=== PATIENT | male | born 1960 | race Caucasian/White ===

== ENCOUNTER 2021-04-03 17:28 | Emergency (ER) | payer OTHER ==
[2021-04-03 18:31] LABS: #Basophils 0.1 10x3/uL (0.0-0.2); #Eosinphils 0.3 10x3/uL (0.0-0.5); #Monocytes 0.4 10x3/uL (0.0-1.1); #Neutrophils 3.5 10x3/uL (1.5-8.4); %Basophils 1.4 % (0.0-2.0); %Eosinophils 4.8 % (0.0-6.0); %Lymphocytes 25.3 % (18.0-47.0); %Neutrophils 60.6 % (40.0-75.0); Hemoglobin 8.8 g/dL (13.5-17.5); Mean Corpuscular HGB CONC 32.5 g/dL (32.0-36.0); Mean Corpuscular Hemoglobin 26.1 pg (27.0-33.0); Mean Corpuscular Volume 80.4 fl (81.2-95.1); Mean Platelet Volume 8.9 fl (7.4-10.4); Platelet Count 267 10x3/uL (150-450); RBC Distribution Width 13.1 % (11.5-14.5); Red Blood Cell (RBC) Count 3.37 10x6/uL (4.32-5.72); White Blood Cell (WBC) Count 5.8 10x3/uL (3.5-10.5)
[2021-04-03 18:52] LABS: ALT (SGPT) 17 U/L (8-55); AST (SGOT) 12 U/L (5-34); Albumin 3.4 g/dL (3.5-5.0); Alkaline Phosphatase 104 U/L (40-110); Anion Gap 12 mmol/L (10-20); BUN (Urea Nitrogen) 15 mg/dL (8.4-25.7); Bilirubin, Total 0.4 mg/dL (0.2-1.2); Calc. Creatinine Clearance 0 mL/min (70-130); Calcium 8.4 mg/dL (7.8-10.44); Carbon Dioxide 19 mmol/L (22-29); Chloride 109 mmol/L (98-107); Globulin 3.6 g/dL (2.4-3.5); Glucose 183 mg/dL (70-105); Potassium 4.3 mmol/L (3.5-5.1); Sodium 136 mmol/L (136-145)
== END 2021-04-03 19:39 | disposition home or self-care (01) ==
LOC: EEVIPCON 17:28 → CSHERS 17:28
DX: D64.9 Anemia, unspecified (principal); E11.9 Type 2 diabetes mellitus without complications; I11.0 Hypertensive heart disease with heart failure; I50.9 Heart failure, unspecified; E78.5 Hyperlipidemia, unspecified
CPT/HCPCS: 36415; 80053; 85025; 99284

== ENCOUNTER 2021-07-11 11:09 | Emergency (ER) | payer OTHER ==
[2021-07-11] MEDS ORDERED: Nitroglycerin 50 MG/250 ML BOT 250 ML ONE (11:27)
[2021-07-11 11:37] LABS: Actual Bicarbonate (HCO3a) 22.7 mEq/L (22-28); Base Excess (BEa) -0.4 mEq/L (-2.0 to +3.0); CO2 Tension 30.8 mmHg (35.0-45.0); Calcium, Ionized (arterial) 1.15 mmol/L (1.12-1.30); Carboxyhemoglobin (COHb) 0.9 gm% (0.0-3.0); Hemoglobin (Hb) 8.2 g/dL (14.0-18.0); O2 Tension (PaO2), arterial 351.7 mmHg (> 80.0); Potassium - ABG Lab 4.5 mmol/L (3.70-5.30); Puncture Site RBA; pH, Arterial 7.49 (7.35-7.45)
[2021-07-11] MEDS ORDERED: Furosemide 40 MG/4 ML VIAL ONE (11:37)
[2021-07-11 11:39] LABS: #Basophils 0.1 10x3/uL (0.0-0.2); #Eosinphils 0.2 10x3/uL (0.0-0.5); #Monocytes 0.4 10x3/uL (0.0-1.1); #Neutrophils 5.8 10x3/uL (1.5-8.4); %Basophils 1.1 % (0.0-2.0); %Eosinophils 3.2 % (0.0-6.0); %Lymphocytes 13.7 % (18.0-47.0); %Monocytes 5.4 % (0.0-10.0); %Neutrophils 76.2 % (40.0-75.0); Hemoglobin 7.3 g/dL (13.5-17.5); Mean Corpuscular HGB CONC 29.3 g/dL (32.0-36.0); Mean Corpuscular Hemoglobin 22.2 pg (27.0-33.0); Mean Corpuscular Volume 75.7 fl (81.2-95.1); Mean Platelet Volume 9.3 fl (7.4-10.4); Platelet Count 421 10x3/uL (150-450); RBC Distribution Width 14.5 % (11.5-14.5); Red Blood Cell (RBC) Count 3.29 10x6/uL (4.32-5.72); White Blood Cell (WBC) Count 7.6 10x3/uL (3.5-10.5)
[2021-07-11 11:58] LABS: ALT (SGPT) 25 U/L (8-55); AST (SGOT) 30 U/L (5-34); Alkaline Phosphatase 149 U/L (40-110); Anion Gap 12 mmol/L (10-20); BUN (Urea Nitrogen) 22 mg/dL (8.4-25.7); Bilirubin, Total 0.5 mg/dL (0.2-1.2); Calc. Creatinine Clearance 0 mL/min (70-130); Calcium 8.4 mg/dL (7.8-10.44); Carbon Dioxide 24 mmol/L (23-31); Chloride 107 mmol/L (98-107); Globulin 3.7 g/dL (2.4-3.5); Glucose 85 mg/dL (80-115); Lipase 25 U/L (8-78); Potassium 4.4 mmol/L (3.5-5.1); Protein, Total 6.7 g/dL (5.8-8.1); Sodium 139 mmol/L (136-145)
[2021-07-11 12:08] LABS: Hypochromia SLIGHT = 6-15 cells (100X) (0-5/hpf); Ovalocytes SLIGHT = 2-5 cells (100X) (0-1/hpf); Platelet Morphology Comment Appears Adequate
[2021-07-11 12:31] LABS: SARS-CoV-2 NAA Rapid Test Not Detected (NotDetected)
[2021-07-11 14:32] LABS: Bilirubin Neg (Negative); Blood, Urine Negative (Negative); Glucose, Urine (Dipstick) Normal (Negative); Ketone, Urine Negative (Negative); Leukocyte Negative (Negative); Nitrite Negative (Negative); Protein, Urine (Dipstick) 100 mg/dl (Neg-Trace); Urobilinogen Normal mg/dL (Less than 2)
[2021-07-11 14:42] LABS: Clarity Clear (Clear)
[2021-07-11 14:47] LABS: Bacteria/HPF None Seen HPF (None Seen); RBC/HPF 0-3 HPF (0-3); Squamous Epithelial None Seen HPF (0-3); WBC/HPF 0-3 HPF (0-3)
[2021-07-11] MEDS ORDERED: Nitroglycerin 50 MG/250 ML BOT 250 ML IVPB SCH (16:15)
== END 2021-07-11 16:40 | disposition short-term general hospital (02) ==
LOC: CSHERS 11:09 → EEVIPCON 11:09 → CSHERS 16:40
DX: I11.0 Hypertensive heart disease with heart failure (principal); I50.9 Heart failure, unspecified; E78.5 Hyperlipidemia, unspecified; E11.9 Type 2 diabetes mellitus without complications; Z79.899 Other long term (current) drug therapy; Z79.82 Long term (current) use of aspirin; Z79.84 Long term (current) use of oral hypoglycemic drugs; Z20.822 Contact with and (suspected) exposure to COVID-19
CPT/HCPCS: 36600; 51702; 71045; 80053; 81003; 81015; 82805; 83605; 83690; 83880; 84484; 85025; 87040; 87086; 93005; 94660; 96374; 96375; J1940; U0002

== ENCOUNTER 2021-11-01 20:21 | Inpatient (IN) | payer OTHER ==
[2021-11-01 20:38] LABS: #Basophils 0.1 10x3/uL (0.0-0.2); #Eosinphils 0.1 10x3/uL (0.0-0.5); #Monocytes 0.4 10x3/uL (0.0-1.1); #Neutrophils 4.6 10x3/uL (1.5-8.4); %Basophils 0.8 % (0.0-2.0); %Eosinophils 2.2 % (0.0-6.0); %Lymphocytes 18.1 % (18.0-47.0); %Monocytes 5.8 % (0.0-10.0); %Neutrophils 72.5 % (40.0-75.0); Hemoglobin 8.3 g/dL (13.5-17.5); Mean Corpuscular HGB CONC 31.2 g/dL (32.0-36.0); Mean Corpuscular Hemoglobin 25.5 pg (27.0-33.0); Mean Corpuscular Volume 81.6 fl (81.2-95.1); Mean Platelet Volume 9.4 fl (7.4-10.4); Platelet Count 202 10x3/uL (150-450); RBC Distribution Width 16.3 % (11.5-14.5); Red Blood Cell (RBC) Count 3.26 10x6/uL (4.32-5.72); White Blood Cell (WBC) Count 6.4 10x3/uL (3.5-10.5)
[2021-11-01] MEDS ORDERED: Furosemide 40 MG/4 ML VIAL ONE (20:43)
[2021-11-01 20:52] LABS: ALV-art Gradient 120.275 mmHg (0-20); Base Excess (BEa) -2.5 mEq/L (-2.0 to +3.0); CO2 Tension 36.5 mmHg (35.0-45.0); Calcium, Ionized (arterial) 1.14 mmol/L (1.12-1.30); Carboxyhemoglobin (COHb) 0.6 gm% (0.0-3.0); O2 Tension (PaO2), arterial 119.3 mmHg (> 80.0); Potassium - ABG Lab 4.6 mmol/L (3.70-5.30); Puncture Site RRA
[2021-11-01 20:54] LABS: ALT (SGPT) 20 U/L (8-55); AST (SGOT) 19 U/L (5-34); Alkaline Phosphatase 180 U/L (40-110); Anion Gap 12 mmol/L (10-20); BUN (Urea Nitrogen) 27 mg/dL (8.4-25.7); Bilirubin, Total 0.8 mg/dL (0.2-1.2); Calc. Creatinine Clearance 0 mL/min (70-130); Calcium 8.1 mg/dL (7.8-10.44); Carbon Dioxide 24 mmol/L (23-31); Chloride 107 mmol/L (98-107); Globulin 3.8 g/dL (2.4-3.5); Glucose 159 mg/dL (80-115); Potassium 4.7 mmol/L (3.5-5.1); Protein, Total 6.8 g/dL (5.8-8.1); Sodium 138 mmol/L (136-145)
[2021-11-01] MEDS ORDERED: hydrALAZINE 20 MG/ML VIAL ONE (21:31)
[2021-11-01 22:05] LABS: SARS-CoV-2 NAA Rapid Test Not Detected (NotDetected)
[2021-11-01] MEDS ORDERED: VANCOMYCIN 2 GRAM/400 ML BAG IVPB SCH (23:45)
[2021-11-01] MEDS ORDERED: Acetaminophen 325 MG TAB PO PRN (23:55)
[2021-11-02] MEDS ORDERED: Dextrose 5% in Water 1,000 ML IV PRN (00:07)
[2021-11-02] MEDS: Dextrose 50% Abboject 50 ML SYRINGE SLOW IVP PRN ×3 (00:50→11:40)
[2021-11-02 00:57] LABS: INR-International Normal Ratio 1.1; PTT 25.7 sec (22.0-33.0); Prothrombin Time 11.5 sec (9.5-12.1)
[2021-11-02 00:59] LABS: Magnesium 1.7 mg/dL (1.6-2.6)
[2021-11-02] MEDS ORDERED: VANCOMYCIN 2 GRAM/400 ML BAG 2 GM in Premix Bag 1 BAG IVPB SCH (01:00)
[2021-11-02] MEDS: Enalaprilat Dihydrate 1.25 MG/ML VIAL SLOW IVP SCH ×4 (01:07→17:37)
[2021-11-02] MEDS: Nitroglycerin 2% Ointment 1 INCH/1 GM Packet TOP SCH ×3 (01:08→17:13)
[2021-11-02 03:52] LABS: Anion Gap 14 mmol/L (10-20); BUN (Urea Nitrogen) 27 mg/dL (8.4-25.7); Calc. Creatinine Clearance 83 mL/min (70-130); Carbon Dioxide 21 mmol/L (23-31); Chloride 109 mmol/L (98-107); Glucose 64 mg/dL (80-115); Potassium 4.1 mmol/L (3.5-5.1); Sodium 140 mmol/L (136-145)
[2021-11-02 03:57] LABS: #Basophils 0.1 10x3/uL (0.0-0.2); #Eosinphils 0.1 10x3/uL (0.0-0.5); #Monocytes 0.5 10x3/uL (0.0-1.1); #Neutrophils 4.9 10x3/uL (1.5-8.4); %Basophils 0.9 % (0.0-2.0); %Eosinophils 1.9 % (0.0-6.0); %Lymphocytes 19.5 % (18.0-47.0); %Monocytes 6.6 % (0.0-10.0); %Neutrophils 70.7 % (40.0-75.0); Hemoglobin 8.1 g/dL (13.5-17.5); Mean Corpuscular HGB CONC 31.9 g/dL (32.0-36.0); Mean Corpuscular Volume 81.4 fl (81.2-95.1); Mean Platelet Volume 9.5 fl (7.4-10.4); Platelet Count 201 10x3/uL (150-450); RBC Distribution Width 16.6 % (11.5-14.5); Red Blood Cell (RBC) Count 3.12 10x6/uL (4.32-5.72); Troponin I Less than 0.010 ng/mL (< 0.028)
[2021-11-02] MEDS: Furosemide 40 MG/4 ML VIAL SLOW IVP SCH ×2 (05:33→13:06)
[2021-11-02] MEDS ORDERED: Furosemide 40 MG/4 ML VIAL SLOW IVP SCH (06:00)
[2021-11-02] MEDS: Enoxaparin Sodium 40 MG/0.4 ML SYRINGE SC SCH (08:50)
[2021-11-02] MEDS: Pantoprazole 40 MG VIAL IVP SCH (08:51)
[2021-11-02] MEDS: Ascorbic Acid 500 mg Chewable Tablet PO SCH ×2 (08:51→20:56)
[2021-11-02] MEDS: Multivit, Therapeutic 1 TAB PO SCH (08:51)
[2021-11-02] MEDS: Aspirin 81 mg Enteric Coated Tablet PO SCH (08:51)
[2021-11-02] MEDS: Zinc Sulfate 220 MG CAP PO SCH ×2 (08:53→20:56)
[2021-11-02] MEDS: Metoprolol Tartrate 50 MG TAB PO SCH ×2 (08:53→20:56)
[2021-11-02] MEDS: metFORMIN 500 MG TAB PO SCH ×2 (10:22→17:39)
[2021-11-02 12:12] LABS: ALV-art Gradient 85.625 mmHg (0-20); Actual Bicarbonate (HCO3a) 24.3 mEq/L (22-28); Base Excess (BEa) -0.7 mEq/L (-2.0 to +3.0); CO2 Tension 41.9 mmHg (35.0-45.0); Carboxyhemoglobin (COHb) 0.9 gm% (0.0-3.0); Hemoglobin (Hb) 8.8 g/dL (14.0-18.0); O2 Tension (PaO2), arterial 75.9 mmHg (> 80.0); Puncture Site RBA; pH, Arterial 7.38 (7.35-7.45)
[2021-11-02] MEDS: Dextrose 10% in Water 1,000 ML IV SCH (16:00)
[2021-11-02] MEDS: Terazosin HCl 5 MG CAP PO SCH (20:56)
[2021-11-02] MEDS: Atorvastatin Calcium 40 MG TAB PO SCH (20:56)
[2021-11-02] MEDS ORDERED: VANCOMYCIN 1.75 GM/350 ML BAG IVPB SCH (23:45)
[2021-11-03] MEDS: Nitroglycerin 2% Ointment 1 INCH/1 GM Packet TOP SCH ×3 (00:12→16:37)
[2021-11-03] MEDS: VANCOMYCIN 1.75 GM/350 ML BAG 1.75 GM in Premix Bag 1 BAG IVPB SCH (00:12)
[2021-11-03] MEDS: Furosemide 40 MG/4 ML VIAL SLOW IVP SCH ×2 (05:23→14:20)
[2021-11-03 05:24] LABS: Anion Gap 13 mmol/L (10-20); BUN (Urea Nitrogen) 27 mg/dL (8.4-25.7); Calc. Creatinine Clearance 78 mL/min (70-130); Calcium 8.1 mg/dL (7.8-10.44); Carbon Dioxide 20 mmol/L (23-31); Chloride 108 mmol/L (98-107); Glucose 109 mg/dL (80-115); Sodium 137 mmol/L (136-145)
[2021-11-03 05:32] LABS: Troponin I Less than 0.010 ng/mL (< 0.028)
[2021-11-03] MEDS: Multivit, Therapeutic 1 TAB PO SCH (07:49)
[2021-11-03] MEDS: Ascorbic Acid 500 mg Chewable Tablet PO SCH ×2 (07:49→21:38)
[2021-11-03] MEDS: Metoprolol Tartrate 50 MG TAB PO SCH ×2 (07:50→21:38)
[2021-11-03] MEDS: Zinc Sulfate 220 MG CAP PO SCH ×2 (07:50→21:38)
[2021-11-03] MEDS: Aspirin 81 mg Enteric Coated Tablet PO SCH (07:50)
[2021-11-03] MEDS: Enoxaparin Sodium 40 MG/0.4 ML SYRINGE SC SCH (08:00)
[2021-11-03] MEDS: Pantoprazole 40 MG VIAL IVP SCH (08:00)
[2021-11-03 13:38] LABS: Legionella Urinary Ag Negative (Negative); Strep pneumo Urine Ag NEGATIVE (NEGATIVE)
[2021-11-03] MEDS ORDERED: Furosemide 40 MG/4 ML VIAL SLOW IVP SCH (21:15)
[2021-11-03] MEDS: Dextrose 10% in Water 1,000 ML IV SCH (21:34)
[2021-11-03] MEDS: Metoprolol Tartrate 5 MG/5 ML VIAL IVP SCH (21:34)
[2021-11-03] MEDS: Terazosin HCl 5 MG CAP PO SCH (21:37)
[2021-11-03] MEDS: Atorvastatin Calcium 40 MG TAB PO SCH (21:38)
[2021-11-03] MEDS: Enalaprilat Dihydrate 1.25 MG/ML VIAL SLOW IVP SCH (22:06)
[2021-11-04] MEDS: VANCOMYCIN 1.75 GM/350 ML BAG 1.75 GM in Premix Bag 1 BAG IVPB SCH (00:59)
[2021-11-04] MEDS: Nitroglycerin 2% Ointment 1 INCH/1 GM Packet TOP SCH ×3 (01:09→16:08)
[2021-11-04] MEDS: Metoprolol Tartrate 5 MG/5 ML VIAL IVP SCH ×2 (01:10→08:21)
[2021-11-04 03:37] LABS: #Basophils 0.1 10x3/uL (0.0-0.2); #Eosinphils 0.2 10x3/uL (0.0-0.5); #Monocytes 0.5 10x3/uL (0.0-1.1); #Neutrophils 5.2 10x3/uL (1.5-8.4); %Basophils 0.8 % (0.0-2.0); %Eosinophils 2.6 % (0.0-6.0); %Lymphocytes 19.1 % (18.0-47.0); %Monocytes 7.3 % (0.0-10.0); %Neutrophils 69.9 % (40.0-75.0); Hemoglobin 7.9 g/dL (13.5-17.5); Mean Corpuscular HGB CONC 31.5 g/dL (32.0-36.0); Mean Corpuscular Hemoglobin 26.1 pg (27.0-33.0); Mean Corpuscular Volume 82.8 fl (81.2-95.1); Mean Platelet Volume 9.8 fl (7.4-10.4); Platelet Count 202 10x3/uL (150-450); RBC Distribution Width 16.1 % (11.5-14.5); Red Blood Cell (RBC) Count 3.03 10x6/uL (4.32-5.72); White Blood Cell (WBC) Count 7.4 10x3/uL (3.5-10.5)
[2021-11-04 04:01] LABS: Anion Gap 14 mmol/L (10-20); BUN (Urea Nitrogen) 30 mg/dL (8.4-25.7); Calc. Creatinine Clearance 74 mL/min (70-130); Calcium 8.4 mg/dL (7.8-10.44); Carbon Dioxide 24 mmol/L (23-31); Chloride 104 mmol/L (98-107); Glucose 133 mg/dL (80-115); Magnesium 1.6 mg/dL (1.6-2.6); Potassium 3.8 mmol/L (3.5-5.1); Sodium 138 mmol/L (136-145)
[2021-11-04] MEDS: Enalaprilat Dihydrate 1.25 MG/ML VIAL SLOW IVP SCH ×2 (05:40→11:00)
[2021-11-04] MEDS: Furosemide 40 MG/4 ML VIAL SLOW IVP SCH ×2 (05:40→14:31)
[2021-11-04] MEDS: Enoxaparin Sodium 40 MG/0.4 ML SYRINGE SC SCH (08:19)
[2021-11-04] MEDS: Metoprolol Tartrate 50 MG TAB PO SCH (08:21)
[2021-11-04] MEDS: Ascorbic Acid 500 mg Chewable Tablet PO SCH ×2 (08:22→20:16)
[2021-11-04] MEDS: Aspirin 81 mg Enteric Coated Tablet PO SCH (08:22)
[2021-11-04] MEDS: Multivit, Therapeutic 1 TAB PO SCH (08:22)
[2021-11-04] MEDS: Zinc Sulfate 220 MG CAP PO SCH ×2 (08:22→20:17)
[2021-11-04] MEDS: Pantoprazole 40 MG VIAL IVP SCH (08:22)
[2021-11-04] MEDS: hydrALAZINE 25 MG TAB PO SCH ×2 (14:29→20:16)
[2021-11-04] MEDS: Carvedilol 12.5 MG TAB PO SCH (16:08)
[2021-11-04] MEDS: Dextrose 10% in Water 1,000 ML IV SCH (16:11)
[2021-11-04] MEDS: Atorvastatin Calcium 40 MG TAB PO SCH (20:16)
[2021-11-04] MEDS: Terazosin HCl 5 MG CAP PO SCH (20:17)
[2021-11-05 00:47] LABS: Vancomycin, Trough 25.5 ug/mL
[2021-11-05 03:17] LABS: Anion Gap 14 mmol/L (10-20); BUN (Urea Nitrogen) 31 mg/dL (8.4-25.7); Calc. Creatinine Clearance 64 mL/min (70-130); Calcium 8.4 mg/dL (7.8-10.44); Carbon Dioxide 27 mmol/L (23-31); Chloride 103 mmol/L (98-107); Glucose 117 mg/dL (80-115); Magnesium 1.6 mg/dL (1.6-2.6); Potassium 3.6 mmol/L (3.5-5.1); Sodium 140 mmol/L (136-145)
[2021-11-05] MEDS: Furosemide 40 MG/4 ML VIAL SLOW IVP SCH ×2 (05:37→14:22)
[2021-11-05] MEDS: Multivit, Therapeutic 1 TAB PO SCH (08:03)
[2021-11-05] MEDS: Ascorbic Acid 500 mg Chewable Tablet PO SCH ×2 (08:03→20:13)
[2021-11-05] MEDS: Carvedilol 12.5 MG TAB PO SCH ×2 (08:03→16:08)
[2021-11-05] MEDS: Zinc Sulfate 220 MG CAP PO SCH ×2 (08:03→20:14)
[2021-11-05] MEDS: Aspirin 81 mg Enteric Coated Tablet PO SCH (08:03)
[2021-11-05] MEDS: Nitroglycerin 2% Ointment 1 INCH/1 GM Packet TOP SCH ×3 (08:03→16:08)
[2021-11-05] MEDS: Pantoprazole 40 MG VIAL IVP SCH (08:03)
[2021-11-05] MEDS: Enoxaparin Sodium 40 MG/0.4 ML SYRINGE SC SCH (08:03)
[2021-11-05] MEDS: Dextrose 10% in Water 1,000 ML IV SCH (08:04)
[2021-11-05] MEDS: hydrALAZINE 25 MG TAB PO SCH ×3 (08:06→20:13)
[2021-11-05] MEDS: Nystatin Powder 15 GM BOT TOP PRN (17:44)
[2021-11-05] MEDS: Atorvastatin Calcium 40 MG TAB PO SCH (20:13)
[2021-11-05] MEDS: Terazosin HCl 5 MG CAP PO SCH (20:13)
[2021-11-06] MEDS ORDERED: VANCOMYCIN 1.25 GM/250 ML BAG 1.25 GM in Premix Bag 1 BAG IVPB SCH (01:00)
[2021-11-06] MEDS: Dextrose 10% in Water 1,000 ML IV SCH (02:34)
[2021-11-06] MEDS: Nitroglycerin 2% Ointment 1 INCH/1 GM Packet TOP SCH ×2 (02:36→08:08)
[2021-11-06 04:38] LABS: Anion Gap 13 mmol/L (10-20); BUN (Urea Nitrogen) 35 mg/dL (8.4-25.7); Calc. Creatinine Clearance 58 mL/min (70-130); Calcium 8.6 mg/dL (7.8-10.44); Carbon Dioxide 31 mmol/L (23-31); Chloride 101 mmol/L (98-107); Glucose 149 mg/dL (80-115); Potassium 3.4 mmol/L (3.5-5.1); Sodium 142 mmol/L (136-145)
[2021-11-06] MEDS: Furosemide 40 MG/4 ML VIAL SLOW IVP SCH (05:48)
[2021-11-06 06:06] VITALS: BMI 25.9
[2021-11-06] MEDS: Enoxaparin Sodium 40 MG/0.4 ML SYRINGE SC SCH (08:08)
[2021-11-06] MEDS: Pantoprazole 40 MG VIAL IVP SCH (08:08)
[2021-11-06] MEDS: Multivit, Therapeutic 1 TAB PO SCH (08:09)
[2021-11-06] MEDS: Carvedilol 12.5 MG TAB PO SCH ×2 (08:09→17:14)
[2021-11-06] MEDS: hydrALAZINE 25 MG TAB PO SCH ×3 (08:10→20:19)
[2021-11-06] MEDS: Aspirin 81 mg Enteric Coated Tablet PO SCH (08:10)
[2021-11-06] MEDS: Ascorbic Acid 500 mg Chewable Tablet PO SCH ×2 (08:11→20:19)
[2021-11-06] MEDS: Zinc Sulfate 220 MG CAP PO SCH ×2 (08:11→20:19)
[2021-11-06] MEDS: HumaLOG 300 UNITS/3 ML VIAL SC PRN ×3 (11:20→20:19)
[2021-11-06] MEDS ORDERED: Magnesium Sulfate 3 GM in Sodium Chloride 0.9% 100 ML IVPB SCH (15:30)
[2021-11-06] MEDS ORDERED: Potassium Chloride 20 MEQ TAB PO SCH (15:30)
[2021-11-06] MEDS: Furosemide 20 MG TAB PO SCH (15:33)
[2021-11-06] MEDS ORDERED: Magnesium 2 GM/50 ML(in water) 2 GM in Premix Bag 1 BAG IVPB SCH (15:45)
[2021-11-06] MEDS: guaiFENesin/Codeine Phosphate 100 mg/10 mg 5 ml UD Cup PO PRN (20:18)
[2021-11-06] MEDS: Nystatin Powder 15 GM BOT TOP PRN (20:18)
[2021-11-06] MEDS: Terazosin HCl 5 MG CAP PO SCH (20:19)
[2021-11-06] MEDS: Atorvastatin Calcium 40 MG TAB PO SCH (20:19)
[2021-11-07 04:50] LABS: Anion Gap 13 mmol/L (10-20); BUN (Urea Nitrogen) 39 mg/dL (8.4-25.7); Calc. Creatinine Clearance 57 mL/min (70-130); Carbon Dioxide 27 mmol/L (23-31); Chloride 101 mmol/L (98-107); Glucose 180 mg/dL (80-115); Potassium 4.1 mmol/L (3.5-5.1); Sodium 137 mmol/L (136-145)
[2021-11-07 05:00] LABS: #Basophils 0.1 10x3/uL (0.0-0.2); #Eosinphils 0.3 10x3/uL (0.0-0.5); #Monocytes 0.6 10x3/uL (0.0-1.1); #Neutrophils 3.6 10x3/uL (1.5-8.4); %Monocytes 9.7 % (0.0-10.0); %Neutrophils 63.1 % (40.0-75.0); Hemoglobin 8.3 g/dL (13.5-17.5); Mean Corpuscular HGB CONC 29.7 g/dL (32.0-36.0); Mean Corpuscular Hemoglobin 24.9 pg (27.0-33.0); Mean Corpuscular Volume 83.8 fl (81.2-95.1); Mean Platelet Volume 9.4 fl (7.4-10.4); Platelet Count 254 10x3/uL (150-450); RBC Distribution Width 15.7 % (11.5-14.5); Red Blood Cell (RBC) Count 3.33 10x6/uL (4.32-5.72); White Blood Cell (WBC) Count 5.8 10x3/uL (3.5-10.5)
[2021-11-07 07:45] LABS: Hypochromia SLIGHT = 6-15 cells (100X) (0-5/hpf); Platelet Morphology Comment Appears Adequate
[2021-11-07] MEDS: Dextrose 10% in Water 1,000 ML IV SCH ×2 (08:34→16:28)
[2021-11-07] MEDS: Carvedilol 12.5 MG TAB PO SCH ×2 (08:39→16:33)
[2021-11-07] MEDS: hydrALAZINE 25 MG TAB PO SCH ×3 (08:39→21:26)
[2021-11-07] MEDS: Zinc Sulfate 220 MG CAP PO SCH ×2 (08:39→21:26)
[2021-11-07] MEDS: Aspirin 81 mg Enteric Coated Tablet PO SCH (08:39)
[2021-11-07] MEDS: Enoxaparin Sodium 40 MG/0.4 ML SYRINGE SC SCH (08:39)
[2021-11-07] MEDS: guaiFENesin/Codeine Phosphate 100 mg/10 mg 5 ml UD Cup PO PRN (08:39)
[2021-11-07] MEDS: Multivit, Therapeutic 1 TAB PO SCH (08:39)
[2021-11-07] MEDS: Ascorbic Acid 500 mg Chewable Tablet PO SCH ×2 (08:39→21:26)
[2021-11-07] MEDS: Pantoprazole 40 MG VIAL IVP SCH (08:40)
[2021-11-07] MEDS: Furosemide 20 MG TAB PO SCH ×2 (08:40→14:50)
[2021-11-07] MEDS: HumaLOG 300 UNITS/3 ML VIAL SC PRN (13:07)
[2021-11-07] MEDS: Cepastat Lozenges 1 LOZ PO PRN (16:33)
[2021-11-07] MEDS: Terazosin HCl 5 MG CAP PO SCH (21:25)
[2021-11-07] MEDS: Atorvastatin Calcium 40 MG TAB PO SCH (21:26)
[2021-11-08 05:51] LABS: Anion Gap 12 mmol/L (10-20); BUN (Urea Nitrogen) 36 mg/dL (8.4-25.7); Calc. Creatinine Clearance 65 mL/min (70-130); Calcium 8.1 mg/dL (7.8-10.44); Carbon Dioxide 31 mmol/L (23-31); Chloride 102 mmol/L (98-107); Glucose 138 mg/dL (80-115); Potassium 3.9 mmol/L (3.5-5.1); Sodium 141 mmol/L (136-145)
[2021-11-08] MEDS: Carvedilol 12.5 MG TAB PO SCH ×2 (08:41→18:02)
[2021-11-08] MEDS: Enoxaparin Sodium 40 MG/0.4 ML SYRINGE SC SCH (08:42)
[2021-11-08] MEDS: Furosemide 20 MG TAB PO SCH ×2 (08:42→16:59)
[2021-11-08] MEDS: hydrALAZINE 25 MG TAB PO SCH ×3 (08:42→20:36)
[2021-11-08] MEDS: Ascorbic Acid 500 mg Chewable Tablet PO SCH ×2 (08:42→20:36)
[2021-11-08] MEDS: Aspirin 81 mg Enteric Coated Tablet PO SCH (08:42)
[2021-11-08] MEDS: Zinc Sulfate 220 MG CAP PO SCH ×2 (08:42→20:38)
[2021-11-08] MEDS: Pantoprazole 40 MG VIAL IVP SCH (08:42)
[2021-11-08] MEDS: Multivit, Therapeutic 1 TAB PO SCH (08:42)
[2021-11-08] MEDS: Dextrose 10% in Water 1,000 ML IV SCH (11:51)
[2021-11-08] MEDS ORDERED: Lidocaine Viscous Sol 2% 15 ml UD Cup ONE ×2 (13:31→14:31)
[2021-11-08] MEDS ORDERED: PROPOFOL 20 ML ONE (14:30)
[2021-11-08] MEDS ORDERED: Lidocaine 1% PF 5 ML VIAL ONE (14:30)
[2021-11-08] MEDS ORDERED: Ketamine 50 MG/ML (10ML VIAL) ONE (14:38)
[2021-11-08] MEDS ORDERED: Midazolam HCl 2 mg/2 ml Vial ONE (14:40)
[2021-11-08] MEDS: Cepastat Lozenges 1 LOZ PO PRN (18:40)
[2021-11-08] MEDS: Terazosin HCl 5 MG CAP PO SCH (20:36)
[2021-11-08] MEDS: Atorvastatin Calcium 40 MG TAB PO SCH (20:38)
[2021-11-09 05:48] LABS: Anion Gap 12 mmol/L (10-20); BUN (Urea Nitrogen) 33 mg/dL (8.4-25.7); Calc. Creatinine Clearance 68 mL/min (70-130); Calcium 8.1 mg/dL (7.8-10.44); Carbon Dioxide 30 mmol/L (23-31); Chloride 103 mmol/L (98-107); Glucose 100 mg/dL (80-115); Potassium 3.9 mmol/L (3.5-5.1); Sodium 141 mmol/L (136-145)
[2021-11-09] MEDS: Furosemide 20 MG TAB PO SCH ×2 (08:26→14:48)
[2021-11-09] MEDS: Aspirin 81 mg Enteric Coated Tablet PO SCH (08:26)
[2021-11-09] MEDS: Carvedilol 12.5 MG TAB PO SCH ×2 (08:26→16:35)
[2021-11-09] MEDS: hydrALAZINE 25 MG TAB PO SCH ×3 (08:26→21:13)
[2021-11-09] MEDS: Enoxaparin Sodium 40 MG/0.4 ML SYRINGE SC SCH (08:26)
[2021-11-09] MEDS: Zinc Sulfate 220 MG CAP PO SCH ×2 (08:26→21:13)
[2021-11-09] MEDS: Multivit, Therapeutic 1 TAB PO SCH (08:26)
[2021-11-09] MEDS: Ascorbic Acid 500 mg Chewable Tablet PO SCH ×2 (08:26→21:12)
[2021-11-09] MEDS: Pantoprazole 40 MG VIAL IVP SCH (08:26)
[2021-11-09] MEDS: Dextrose 10% in Water 1,000 ML IV SCH (08:27)
[2021-11-09] MEDS ORDERED: Lidocaine Viscous Sol 2% 15 ml UD Cup SSW PRN (10:19)
[2021-11-09] MEDS: HumaLOG 300 UNITS/3 ML VIAL SC PRN (14:50)
[2021-11-09] MEDS: Atorvastatin Calcium 40 MG TAB PO SCH (21:12)
[2021-11-09] MEDS: Terazosin HCl 5 MG CAP PO SCH (21:13)
[2021-11-10 05:14] LABS: Anion Gap 11 mmol/L (10-20); BUN (Urea Nitrogen) 30 mg/dL (8.4-25.7); Calc. Creatinine Clearance 71 mL/min (70-130); Calcium 8.1 mg/dL (7.8-10.44); Carbon Dioxide 31 mmol/L (23-31); Chloride 102 mmol/L (98-107); Glucose 178 mg/dL (80-115); Potassium 3.8 mmol/L (3.5-5.1); Sodium 140 mmol/L (136-145)
[2021-11-10] MEDS: Dextrose 10% in Water 1,000 ML IV SCH (05:44)
[2021-11-10] MEDS: Multivit, Therapeutic 1 TAB PO SCH (08:42)
[2021-11-10] MEDS: Ascorbic Acid 500 mg Chewable Tablet PO SCH ×2 (08:42→21:48)
[2021-11-10] MEDS: Enoxaparin Sodium 40 MG/0.4 ML SYRINGE SC SCH (08:42)
[2021-11-10] MEDS: Furosemide 20 MG TAB PO SCH ×2 (08:42→13:29)
[2021-11-10] MEDS: Aspirin 81 mg Enteric Coated Tablet PO SCH (08:42)
[2021-11-10] MEDS: Zinc Sulfate 220 MG CAP PO SCH ×2 (08:42→21:48)
[2021-11-10] MEDS: Pantoprazole 40 MG VIAL IVP SCH (08:42)
[2021-11-10] MEDS: Carvedilol 12.5 MG TAB PO SCH ×2 (08:42→16:24)
[2021-11-10] MEDS: hydrALAZINE 25 MG TAB PO SCH ×3 (08:43→21:47)
[2021-11-10] MEDS: HumaLOG 300 UNITS/3 ML VIAL SC PRN ×3 (08:50→16:43)
[2021-11-10] MEDS ORDERED: hydrALAZINE 20 MG/ML VIAL SLOW IVP PRN (16:26)
[2021-11-10] MEDS ORDERED: Amlodipine 10 MG TAB PO SCH (16:30)
[2021-11-10] MEDS: Atorvastatin Calcium 40 MG TAB PO SCH (21:48)
[2021-11-10] MEDS: Terazosin HCl 5 MG CAP PO SCH (21:48)
[2021-11-11 05:46] LABS: Anion Gap 13 mmol/L (10-20); BUN (Urea Nitrogen) 29 mg/dL (8.4-25.7); Calc. Creatinine Clearance 75 mL/min (70-130); Calcium 8.3 mg/dL (7.8-10.44); Carbon Dioxide 29 mmol/L (23-31); Chloride 102 mmol/L (98-107); Glucose 185 mg/dL (80-115); Potassium 3.9 mmol/L (3.5-5.1); Sodium 140 mmol/L (136-145)
[2021-11-11] MEDS: Ascorbic Acid 500 mg Chewable Tablet PO SCH ×2 (09:51→21:01)
[2021-11-11] MEDS: hydrALAZINE 25 MG TAB PO SCH ×3 (09:51→21:02)
[2021-11-11] MEDS: Pantoprazole 40 MG VIAL IVP SCH (09:51)
[2021-11-11] MEDS: Furosemide 20 MG TAB PO SCH ×2 (09:51→14:25)
[2021-11-11] MEDS: Zinc Sulfate 220 MG CAP PO SCH ×2 (09:51→21:01)
[2021-11-11] MEDS: Multivit, Therapeutic 1 TAB PO SCH (09:51)
[2021-11-11] MEDS: Aspirin 81 mg Enteric Coated Tablet PO SCH (09:51)
[2021-11-11] MEDS: Carvedilol 12.5 MG TAB PO SCH ×2 (09:51→16:40)
[2021-11-11] MEDS: Enoxaparin Sodium 40 MG/0.4 ML SYRINGE SC SCH (09:51)
[2021-11-11] MEDS: HumaLOG 300 UNITS/3 ML VIAL SC PRN ×2 (13:11→21:49)
[2021-11-11] MEDS ORDERED: Furosemide 20 MG/2 ML VIAL SLOW IVP SCH (17:00)
[2021-11-11] MEDS: Terazosin HCl 5 MG CAP PO SCH (21:01)
[2021-11-11] MEDS: Atorvastatin Calcium 40 MG TAB PO SCH (21:01)
[2021-11-12 05:50] LABS: Anion Gap 13 mmol/L (10-20); BUN (Urea Nitrogen) 29 mg/dL (8.4-25.7); Calc. Creatinine Clearance 66 mL/min (70-130); Calcium 8.2 mg/dL (7.8-10.44); Carbon Dioxide 30 mmol/L (23-31); Chloride 100 mmol/L (98-107); Glucose 187 mg/dL (80-115); Sodium 139 mmol/L (136-145)
[2021-11-12] MEDS: HumaLOG 300 UNITS/3 ML VIAL SC PRN ×3 (07:45→16:58)
[2021-11-12] MEDS: Multivit, Therapeutic 1 TAB PO SCH (09:25)
[2021-11-12] MEDS: Furosemide 20 MG TAB PO SCH ×2 (09:25→14:58)
[2021-11-12] MEDS: Carvedilol 12.5 MG TAB PO SCH ×2 (09:25→16:58)
[2021-11-12] MEDS: hydrALAZINE 25 MG TAB PO SCH ×3 (09:25→20:59)
[2021-11-12] MEDS: Ascorbic Acid 500 mg Chewable Tablet PO SCH ×2 (09:25→20:58)
[2021-11-12] MEDS: Enoxaparin Sodium 40 MG/0.4 ML SYRINGE SC SCH (09:25)
[2021-11-12] MEDS: Aspirin 81 mg Enteric Coated Tablet PO SCH (09:26)
[2021-11-12] MEDS: Zinc Sulfate 220 MG CAP PO SCH ×2 (09:26→20:58)
[2021-11-12] MEDS: Pantoprazole 40 MG VIAL IVP SCH (09:26)
[2021-11-12] MEDS: Atorvastatin Calcium 40 MG TAB PO SCH (20:58)
[2021-11-12] MEDS: Terazosin HCl 5 MG CAP PO SCH (20:59)
[2021-11-12 21:00] VITALS: BP 136/64
[2021-11-13 02:26] VITALS: TEMP 97.9
== END 2021-11-12 22:19 | DRG 291 ==
LOC: CSHERS 20:21 → CSHIMCU 23:45 → EEVIPCON 23:45 → CSHTELE 11-06 12:33
PROVIDERS: ADMIT Family Medicine; ATTEND Hospitalist
PROC: 5A09357 Assistance with Respiratory Ventilation, Less than 24 Consecutive Hours, Continuous Positive Airway Pressure (ICD-10-PCS; principal; 2021-11-01)
PROC: 5A09457 Assistance with Respiratory Ventilation, 24-96 Consecutive Hours, Continuous Positive Airway Pressure (ICD-10-PCS; 2021-11-01)
PROC: 0D758ZZ Dilation of Esophagus, Via Natural or Artificial Opening Endoscopic (ICD-10-PCS; 2021-11-08)
DX: I13.0 Hypertensive heart and chronic kidney disease with heart failure and stage 1 through stage 4 chronic kidney disease, or unspecified chronic kidney disease (principal); J96.01 Acute respiratory failure with hypoxia; I50.33 Acute on chronic diastolic (congestive) heart failure; L03.115 Cellulitis of right lower limb; I48.20 Chronic atrial fibrillation, unspecified; N17.9 Acute kidney failure, unspecified; I42.9 Cardiomyopathy, unspecified; H54.7 Unspecified visual loss; E78.5 Hyperlipidemia, unspecified; J44.9 Chronic obstructive pulmonary disease, unspecified; N40.0 Benign prostatic hyperplasia without lower urinary tract symptoms; E11.621 Type 2 diabetes mellitus with foot ulcer; L97.509 Non-pressure chronic ulcer of other part of unspecified foot with unspecified severity; E11.22 Type 2 diabetes mellitus with diabetic chronic kidney disease; N18.31 Chronic kidney disease, stage 3a; E11.51 Type 2 diabetes mellitus with diabetic peripheral angiopathy without gangrene; D63.1 Anemia in chronic kidney disease; I25.10 Atherosclerotic heart disease of native coronary artery without angina pectoris; E11.649 Type 2 diabetes mellitus with hypoglycemia without coma; T87.89 Other complications of amputation stump; Y83.8 Other surgical procedures as the cause of abnormal reaction of the patient, or of later complication, without mention of misadventure at the time of the procedure; R13.12 Dysphagia, oropharyngeal phase; Z99.3 Dependence on wheelchair; I27.20 Pulmonary hypertension, unspecified; Z20.822 Contact with and (suspected) exposure to COVID-19; I25.2 Old myocardial infarction; Z79.899 Other long term (current) drug therapy; Z79.84 Long term (current) use of oral hypoglycemic drugs; Z89.521 Acquired absence of right knee; Z79.82 Long term (current) use of aspirin; Z88.1 Allergy status to other antibiotic agents; Z82.5 Family history of asthma and other chronic lower respiratory diseases
CPT/HCPCS: 36415; 36416; 36600; 71045; 74230; 80048; 80053; 80202; 82805; 83605; 83735; 83880; 84484; 85025; 85379; 85610; 85730; 87040; 87070; 87205; 87449; 87899; 93005; 93010; 93306; 94660; 94760; 96374; 96375; C9113; J0360; J1610; J1650; J1815; J1940; J1956; J2250; J2704; J3370; J3475; J7999; U0002

== ENCOUNTER 2022-01-30 13:09 | Emergency (ER) | payer OTHER ==
[2022-01-30 13:58] LABS: #Basophils 0.1 10x3/uL (0.0-0.2); #Eosinphils 0.1 10x3/uL (0.0-0.5); #Monocytes 0.3 10x3/uL (0.0-1.1); #Neutrophils 3.1 10x3/uL (1.5-8.4); %Basophils 1.2 % (0.0-2.0); %Eosinophils 2.8 % (0.0-6.0); %Lymphocytes 28.3 % (18.0-47.0); %Monocytes 5.5 % (0.0-10.0); %Neutrophils 62.2 % (40.0-75.0); Hemoglobin 8.2 g/dL (13.5-17.5); Mean Corpuscular HGB CONC 31.2 g/dL (32.0-36.0); Mean Corpuscular Hemoglobin 26.4 pg (27.0-33.0); Mean Corpuscular Volume 84.6 fl (81.2-95.1); Mean Platelet Volume 9.8 fl (7.4-10.4); Platelet Count 260 10x3/uL (150-450); RBC Distribution Width 14.6 % (11.5-14.5); Red Blood Cell (RBC) Count 3.11 10x6/uL (4.32-5.72); White Blood Cell (WBC) Count 4.9 10x3/uL (3.5-10.5)
[2022-01-30] MEDS ORDERED: Diltiazem 125 MG, Admixture Fee 1 EACH in Sodium Chloride 0.9% 100 ML IVPB SCH (14:15)
[2022-01-30 14:16] LABS: ALT (SGPT) 19 U/L (8-55); AST (SGOT) 14 U/L (5-34); Albumin 3.1 g/dL (3.4-4.8); Alkaline Phosphatase 167 U/L (40-110); Anion Gap 11 mmol/L (10-20); BUN (Urea Nitrogen) 31 mg/dL (8.4-25.7); Bilirubin, Total 0.4 mg/dL (0.2-1.2); Calc. Creatinine Clearance 0 mL/min (70-130); Calcium 8.2 mg/dL (7.8-10.44); Carbon Dioxide 21 mmol/L (23-31); Chloride 111 mmol/L (98-107); Estimated GFR 43; Globulin 3.6 g/dL (2.4-3.5); Glucose 63 mg/dL (80-115); Potassium 4.4 mmol/L (3.5-5.1); Protein, Total 6.7 g/dL (5.8-8.1); Sodium 139 mmol/L (136-145)
[2022-01-30 14:26] LABS: SARS-CoV-2 NAA Rapid Test Not Detected (NotDetected)
[2022-01-30 14:42] LABS: CKMB 7.2 ng/mL (0-6.6)
[2022-01-30] MEDS ORDERED: Aspirin Chewable 81 MG TAB ONE (14:48)
[2022-01-30] MEDS ORDERED: Furosemide 40 MG/4 ML VIAL ONE (15:52)
== END 2022-01-31 00:10 | disposition short-term general hospital (02) ==
LOC: CSHERS 13:09
DX: I11.0 Hypertensive heart disease with heart failure (principal); I50.9 Heart failure, unspecified; E78.5 Hyperlipidemia, unspecified; I11.9 Hypertensive heart disease without heart failure; I48.91 Unspecified atrial fibrillation; Z79.899 Other long term (current) drug therapy; Z79.82 Long term (current) use of aspirin; Z79.84 Long term (current) use of oral hypoglycemic drugs; Z20.822 Contact with and (suspected) exposure to COVID-19
CPT/HCPCS: 36415; 71045; 80053; 82553; 83605; 83880; 84484; 85025; 87040; 93005; 96365; 96366; 96375; J1940; J3490; U0002

== ENCOUNTER 2022-03-23 08:58 | Emergency (ER) | payer OTHER ==
[2022-03-23 09:40] LABS: #Basophils 0.1 10x3/uL (0.0-0.2); #Eosinphils 0.2 10x3/uL (0.0-0.5); #Monocytes 0.5 10x3/uL (0.0-1.1); #Neutrophils 4.7 10x3/uL (1.5-8.4); %Basophils 1.6 % (0.0-2.0); %Lymphocytes 27.5 % (18.0-47.0); %Monocytes 5.9 % (0.0-10.0); %Neutrophils 61.6 % (40.0-75.0); Hemoglobin 8.3 g/dL (13.5-17.5); Mean Corpuscular HGB CONC 33.2 g/dL (32.0-36.0); Mean Corpuscular Hemoglobin 27.1 pg (27.0-33.0); Mean Corpuscular Volume 81.7 fl (81.2-95.1); Mean Platelet Volume 9.6 fl (7.4-10.4); Platelet Count 286 10x3/uL (150-450); RBC Distribution Width 13.6 % (11.5-14.5); Red Blood Cell (RBC) Count 3.06 10x6/uL (4.32-5.72); White Blood Cell (WBC) Count 7.6 10x3/uL (3.5-10.5)
[2022-03-23 09:59] LABS: PTT 25.1 sec (22.0-33.0); Prothrombin Time 10.8 sec (9.5-12.1)
[2022-03-23 10:04] LABS: ALT (SGPT) 15 U/L (8-55); AST (SGOT) 13 U/L (5-34); Albumin 2.8 g/dL (3.4-4.8); Alkaline Phosphatase 194 U/L (40-110); Anion Gap 15 mmol/L (10-20); BUN (Urea Nitrogen) 22 mg/dL (8.4-25.7); Bilirubin, Total 0.8 mg/dL (0.2-1.2); Calc. Creatinine Clearance 0 mL/min (70-130); Calcium 7.6 mg/dL (7.8-10.44); Carbon Dioxide 22 mmol/L (23-31); Chloride 107 mmol/L (98-107); Estimated GFR 56; Globulin 3.6 g/dL (2.4-3.5); Glucose 249 mg/dL (80-115); Potassium 4.2 mmol/L (3.5-5.1); Protein, Total 6.4 g/dL (5.8-8.1); Sodium 140 mmol/L (136-145)
[2022-03-23] MEDS ORDERED: Furosemide 40 MG/4 ML VIAL ONE (10:49)
[2022-03-23 11:02] LABS: SARS-CoV-2 NAA Rapid Test Not Detected (NotDetected)
== END 2022-03-23 16:08 | disposition short-term general hospital (02) ==
LOC: CSHERS 08:58 → EEVIPCON 08:58 → CSHERS 16:08
DX: I11.0 Hypertensive heart disease with heart failure (principal); I50.9 Heart failure, unspecified; E78.5 Hyperlipidemia, unspecified; D64.9 Anemia, unspecified; E11.9 Type 2 diabetes mellitus without complications; I48.91 Unspecified atrial fibrillation; I25.10 Atherosclerotic heart disease of native coronary artery without angina pectoris; Z20.822 Contact with and (suspected) exposure to COVID-19
CPT/HCPCS: 36415; 71045; 80053; 83880; 84484; 85025; 85610; 85730; 93005; 96374; J1940; U0002

== ENCOUNTER 2022-11-06 17:09 | Inpatient (IN) | payer OTHER ==
[2022-11-06] MEDS ORDERED: Ipratropium/Albuterol 3 ML NEB ONE (17:17)
[2022-11-06] MEDS ORDERED: Furosemide 40 MG/4 ML VIAL ONE ×2 (17:33→19:34)
[2022-11-06] MEDS ORDERED: methylPREDNISolone Sod Succ/PF 125 MG/2 ML VIAL ONE (17:33)
[2022-11-06] MEDS ORDERED: Nitroglycerin 2% Ointment 1 INCH/1 GM Packet ONE (17:34)
[2022-11-06] MEDS ORDERED: Ondansetron PF 4 MG/2 ML Vial ONE (17:34)
[2022-11-06 17:52] LABS: Actual Bicarbonate (HCO3a) 30.7 mEq/L (22-28); Base Excess (BEa) 6.3 mEq/L (-2.0 to +3.0); CO2 Tension 43.8 mmHg (35.0-45.0); Calcium, Ionized (arterial) 1.06 mmol/L (1.12-1.30); Carboxyhemoglobin (COHb) 0.3 gm% (0.0-3.0); Hematocrit-ABG 24 % (42.0-52.0); Hemoglobin (Hb) 8.3 g/dL (14.0-18.0); O2 Tension (PaO2), arterial 64.5 mmHg (> 80.0); Potassium - ABG Lab 5.36 mmol/L (3.70-5.30); Puncture Site RBA; pH, Arterial 7.463 (7.35-7.45)
[2022-11-06 17:55] LABS: #Basophils 0.1 10x3/uL (0.0-0.2); #Eosinphils 0.1 10x3/uL (0.0-0.5); #Monocytes 0.2 10x3/uL (0.0-1.1); #Neutrophils 2.8 10x3/uL (1.5-8.4); %Basophils 1.3 % (0.0-2.0); %Eosinophils 1.8 % (0.0-6.0); %Lymphocytes 19.9 % (18.0-47.0); %Monocytes 3.9 % (0.0-10.0); %Neutrophils 72.8 % (40.0-75.0); Hemoglobin 7.5 g/dL (13.5-17.5); Mean Corpuscular HGB CONC 29.9 g/dL (32.0-36.0); Mean Corpuscular Hemoglobin 26.7 pg (27.0-33.0); Mean Corpuscular Volume 89.3 fl (81.2-95.1); Mean Platelet Volume 9.5 fl (7.4-10.4); Platelet Count 248 10x3/uL (150-450); RBC Distribution Width 13.4 % (11.5-14.5); Red Blood Cell (RBC) Count 2.81 10x6/uL (4.32-5.72); White Blood Cell (WBC) Count 3.9 10x3/uL (3.5-10.5)
[2022-11-06 18:03] LABS: INR-International Normal Ratio 1.1; PTT 27.1 sec (22.0-33.0); Prothrombin Time 11.7 sec (9.5-12.1)
[2022-11-06 18:04] LABS: ALT (SGPT) 15 U/L (8-55); AST (SGOT) 15 U/L (5-34); Albumin 2.8 g/dL (3.4-4.8); Alkaline Phosphatase 222 U/L (40-110); Anion Gap 12 mmol/L (10-20); BUN (Urea Nitrogen) 28 mg/dL (8.4-25.7); Bilirubin, Total 0.7 mg/dL (0.2-1.2); Calc. Creatinine Clearance 0 mL/min (70-130); Carbon Dioxide 31 mmol/L (23-31); Chloride 101 mmol/L (98-107); Estimated GFR 45; Globulin 3.7 g/dL (2.4-3.5); Glucose 134 mg/dL (80-115); Magnesium 1.4 mg/dL (1.6-2.6); Potassium 5.5 mmol/L (3.5-5.1); Protein, Total 6.5 g/dL (5.8-8.1); Sodium 138 mmol/L (136-145)
[2022-11-06 18:14] LABS: Platelet Adequacy Comment Appears Adequate; RBC Morph Comment Within Normal Limits
[2022-11-06] MEDS ORDERED: Magnesium 2 GM/50 ML BAG (IN WATER) ONE (18:46)
[2022-11-06] MEDS ORDERED: Acetaminophen 325 MG TAB PO PRN (19:48)
[2022-11-06] MEDS ORDERED: Guaifenesin DM 100-10/5 ML UDCUP PO PRN (19:48)
[2022-11-06] MEDS ORDERED: Senokot S 8.6-50 MG TAB PO PRN (19:48)
[2022-11-06] MEDS ORDERED: Calcium Carbonate 500 MG ChewTAB PO PRN (19:48)
[2022-11-06] MEDS ORDERED: Zolpidem Tartrate 5 MG TAB PO PRN (19:48)
[2022-11-06] MEDS ORDERED: Ondansetron PF 4 MG/2 ML Vial IVP PRN (19:48)
[2022-11-06] MEDS: metFORMIN 500 MG TAB PO SCH (22:47)
[2022-11-06] MEDS: hydrALAZINE 25 MG TAB PO SCH (22:47)
[2022-11-06] MEDS: Ascorbic Acid 500 mg Chewable Tablet PO SCH (22:47)
[2022-11-06] MEDS: Atorvastatin Calcium 40 MG TAB PO SCH (22:48)
[2022-11-06] MEDS: Terazosin HCl 5 MG CAP PO SCH (22:48)
[2022-11-06] MEDS ORDERED: Nitroglycerin 2% Ointment 1 INCH/1 GM Packet TOP SCH (23:00)
[2022-11-06 23:42] LABS: Iron 18 ug/dL (65-175); Iron Binding Capacity, Total 186 mcg/dL (261-462)
[2022-11-07 03:11] LABS: #Neutrophils 2.6 10x3/uL (1.5-8.4); %Basophils 0.3 % (0.0-2.0); %Eosinophils 0.3 % (0.0-6.0); %Lymphocytes 11.1 % (18.0-47.0); Hemoglobin 7.3 g/dL (13.5-17.5); Mean Corpuscular HGB CONC 30.5 g/dL (32.0-36.0); Mean Corpuscular Volume 88.5 fl (81.2-95.1); Mean Platelet Volume 9.8 fl (7.4-10.4); Platelet Count 248 10x3/uL (150-450); RBC Distribution Width 13.3 % (11.5-14.5)
[2022-11-07 03:17] LABS: Anion Gap 15 mmol/L (10-20); BUN (Urea Nitrogen) 35 mg/dL (8.4-25.7); Calc. Creatinine Clearance 56 mL/min (70-130); Calcium 8.2 mg/dL (7.8-10.44); Carbon Dioxide 30 mmol/L (23-31); Chloride 100 mmol/L (98-107); Estimated GFR 41; Glucose 193 mg/dL (80-115); Magnesium 1.6 mg/dL (1.6-2.6); Potassium 5.6 mmol/L (3.5-5.1); Sodium 139 mmol/L (136-145)
[2022-11-07] MEDS: Furosemide 100 MG/10 ML VIAL SLOW IVP SCH ×2 (06:27→14:04)
[2022-11-07] MEDS: glipiZIDE 10 MG TAB PO SCH ×2 (08:23→16:57)
[2022-11-07] MEDS: predniSONE 20 MG TAB PO SCH (08:23)
[2022-11-07] MEDS: Carvedilol 12.5 MG TAB PO SCH ×2 (08:23→16:57)
[2022-11-07] MEDS: Mometasone/Formoterol 60 PUFF AER INH SCH ×2 (09:09→19:50)
[2022-11-07] MEDS: metFORMIN 500 MG TAB PO SCH (10:12)
[2022-11-07] MEDS: Ascorbic Acid 500 mg Chewable Tablet PO SCH ×2 (10:12→22:25)
[2022-11-07] MEDS: hydrALAZINE 25 MG TAB PO SCH ×3 (10:12→22:25)
[2022-11-07] MEDS: Aspirin 81 mg Enteric Coated Tablet PO SCH (10:12)
[2022-11-07] MEDS: Folic Acid/Vit B Comp W-C PO SCH (10:17)
[2022-11-07] MEDS ORDERED: Magnesium 2 GM/50 ML(in water) 2 GM in Premix Bag 1 BAG IVPB SCH (16:30)
[2022-11-07 17:37] LABS: Anion Gap 16 mmol/L (10-20); BUN (Urea Nitrogen) 49 mg/dL (8.4-25.7); Calc. Creatinine Clearance 47 mL/min (70-130); Calcium 8.3 mg/dL (7.8-10.44); Carbon Dioxide 30 mmol/L (23-31); Chloride 99 mmol/L (98-107); Estimated GFR 34; Glucose 240 mg/dL (80-115); Potassium 5.7 mmol/L (3.5-5.1); Sodium 139 mmol/L (136-145)
[2022-11-07] MEDS: Ipratropium/Albuterol 3 ML NEB NEB PRN (19:50)
[2022-11-07] MEDS ORDERED: Budesonide 0.5 MG/2 ML NEB ONE (19:54)
[2022-11-07] MEDS ORDERED: LOKELMA 10 GM PACKET PO SCH (21:15)
[2022-11-07] MEDS ORDERED: Calcium Gluc 4.6 MEQ/10 ML (100 MG/ML) SLOW IVP SCH (21:15)
[2022-11-07] MEDS ORDERED: Insulin Regular 300 UNITS/3 ML VIAL IVP SCH (21:15)
[2022-11-07] MEDS: Terazosin HCl 5 MG CAP PO SCH (22:24)
[2022-11-07] MEDS: Atorvastatin Calcium 40 MG TAB PO SCH (22:25)
[2022-11-07] MEDS ORDERED: Albumin 25% 25 GM/100 ML BOT IVPB SCH (23:00)
[2022-11-08] MEDS: Ipratropium/Albuterol 3 ML NEB NEB PRN ×4 (03:25→22:58)
[2022-11-08 03:36] LABS: Anion Gap 13 mmol/L (10-20); BUN (Urea Nitrogen) 52 mg/dL (8.4-25.7); Calc. Creatinine Clearance 47 mL/min (70-130); Calcium 8.6 mg/dL (7.8-10.44); Carbon Dioxide 32 mmol/L (23-31); Chloride 99 mmol/L (98-107); Estimated GFR 33; Glucose 255 mg/dL (80-115); Potassium 5.2 mmol/L (3.5-5.1); Sodium 139 mmol/L (136-145)
[2022-11-08 03:42] LABS: Hemoglobin 7.5 g/dL (13.5-17.5); MDiff Complete? YES; Mean Corpuscular HGB CONC 31.4 g/dL (32.0-36.0); Mean Corpuscular Hemoglobin 27.6 pg (27.0-33.0); Mean Corpuscular Volume 87.9 fl (81.2-95.1); Mean Platelet Volume 10.1 fl (7.4-10.4); Platelet Count 306 10x3/uL (150-450); RBC Distribution Width 13.5 % (11.5-14.5); Red Blood Cell (RBC) Count 2.72 10x6/uL (4.32-5.72); White Blood Cell (WBC) Count 5.7 10x3/uL (3.5-10.5)
[2022-11-08 04:17] LABS: Band 1 % (5-11); Lymphocytes 11 % (21-51); Monocytes 7 % (0-10); Neutrophil 81 % (42-75)
[2022-11-08 04:20] LABS: Anisocytosis SLIGHT = 6-15 cells (100X) (0-5/hpf); Macrocytosis SLIGHT = 6-15 cells (100X) (0-5/hpf); Microcytosis SLIGHT = 6-15 cells (100X) (0-5/hpf); Platelet Adequacy Comment Appears Adequate
[2022-11-08] MEDS ORDERED: Albumin 25% 25 GM/100 ML BOT IVPB SCH (06:00)
[2022-11-08] MEDS: Furosemide 100 MG/10 ML VIAL SLOW IVP SCH ×2 (06:19→13:59)
[2022-11-08] MEDS: Budesonide 0.5 MG/2 ML NEB NEB SCH ×2 (07:25→21:00)
[2022-11-08] MEDS: predniSONE 20 MG TAB PO SCH (09:03)
[2022-11-08] MEDS: Carvedilol 12.5 MG TAB PO SCH ×2 (09:03→18:18)
[2022-11-08] MEDS: Aspirin 81 mg Enteric Coated Tablet PO SCH (09:04)
[2022-11-08] MEDS: Ascorbic Acid 500 mg Chewable Tablet PO SCH ×2 (09:04→22:04)
[2022-11-08] MEDS: Folic Acid/Vit B Comp W-C PO SCH (09:04)
[2022-11-08] MEDS: glipiZIDE 10 MG TAB PO SCH ×2 (09:04→17:06)
[2022-11-08] MEDS: hydrALAZINE 25 MG TAB PO SCH ×3 (09:04→22:05)
[2022-11-08] MEDS ORDERED: HumaLOG 300 UNITS/3 ML VIAL SC PRN (09:58)
[2022-11-08] MEDS ORDERED: Dextrose 50% Abboject 50 ML SYRINGE SLOW IVP PRN (09:58)
[2022-11-08] MEDS ORDERED: Glucagon 1 MG/ML KIT IM PRN (09:58)
[2022-11-08] MEDS ORDERED: Dextrose 5% in Water 1,000 ML IV PRN (09:58)
[2022-11-08] MEDS ORDERED: Lantus 1000 UNITS/10 ML VIAL SC SCH (10:00)
[2022-11-08 11:07] LABS: Bilirubin Neg (Negative); Blood, Urine 150 (Negative); Clarity Clear (Clear); Glucose, Urine (Dipstick) Normal (Negative); Ketone, Urine Negative (Negative); Leukocyte Negative (Negative); Nitrite Negative (Negative); Protein, Urine (Dipstick) 100 mg/dl (Neg-Trace); Urobilinogen Normal mg/dL (Less than 2)
[2022-11-08 11:21] LABS: Bacteria/HPF Rare-Few HPF (None Seen); RBC/HPF 0-3 HPF (0-3); Squamous Epithelial 0-3 HPF (0-3); WBC/HPF 0-3 HPF (0-3)
[2022-11-08] MEDS ORDERED: Polyethylene Glycol 3350 17 GM Packet PO PRN (12:36)
[2022-11-08 17:56] LABS: Hemoglobin 8.9 g/dL (13.5-17.5)
[2022-11-08] MEDS: methylPREDNISolone Sod Succ 40 MG VIAL IVP SCH ×2 (18:20→23:53)
[2022-11-08] MEDS ORDERED: Budesonide 0.5 MG/2 ML NEB ONE (19:10)
[2022-11-08] MEDS ORDERED: Nitroglycerin 2% Ointment 1 INCH/1 GM Packet TOP SCH (20:00)
[2022-11-08] MEDS ORDERED: Labetalol HCl 100 MG/20 ML VIAL SLOW IVP SCH (20:00)
[2022-11-08 20:07] LABS: Actual Bicarbonate (HCO3a) 34.1 mEq/L (22-28); Base Excess (BEa) 8.8 mEq/L (-2.0 to +3.0); CO2 Tension 50.5 mmHg (35.0-45.0); Calcium, Ionized (arterial) 1.12 mmol/L (1.12-1.30); Hematocrit-ABG 30 % (42.0-52.0); Hemoglobin (Hb) 10.2 g/dL (14.0-18.0); O2 Tension (PaO2), arterial 75.8 mmHg (> 80.0); Potassium - ABG Lab 4.92 mmol/L (3.70-5.30); Puncture Site RBA; pH, Arterial 7.447 (7.35-7.45)
[2022-11-08 20:09] LABS: ALV-art Gradient 146.275 mmHg (0-20)
[2022-11-08 20:18] LABS: Anion Gap 15 mmol/L (10-20); BUN (Urea Nitrogen) 49 mg/dL (8.4-25.7); Calc. Creatinine Clearance 50 mL/min (70-130); Calcium 8.9 mg/dL (7.8-10.44); Carbon Dioxide 33 mmol/L (23-31); Chloride 96 mmol/L (98-107); Estimated GFR 36; Glucose 198 mg/dL (80-115); Potassium 5.3 mmol/L (3.5-5.1); Sodium 139 mmol/L (136-145)
[2022-11-08] MEDS ORDERED: Furosemide 20 MG/2 ML VIAL SLOW IVP SCH (20:30)
[2022-11-08] MEDS ORDERED: methylPREDNISolone Sod Succ/PF 125 MG/2 ML VIAL IVP SCH (21:00)
[2022-11-08] MEDS ORDERED: Bisacodyl 10 MG SUPP PR SCH (21:00)
[2022-11-08] MEDS ORDERED: Nitroglycerin 50 MG/250 ML BOT 250 ML ONE (21:15)
[2022-11-08] MEDS ORDERED: Furosemide 100 MG in Sodium Chloride 0.9% 90 ML IVPB SCH (21:15)
[2022-11-08] MEDS ORDERED: Nitroglycerin 50 MG/250 ML BOT 250 ML IVPB SCH (21:30)
[2022-11-08] MEDS: Atorvastatin Calcium 40 MG TAB PO SCH (22:04)
[2022-11-08] MEDS: Terazosin HCl 5 MG CAP PO SCH (22:05)
[2022-11-08] MEDS: HumaLOG 300 UNITS/3 ML VIAL SC PRN (22:52)
[2022-11-09 03:05] LABS: #Monocytes 0.1 10x3/uL (0.0-1.1); %Lymphocytes 6.7 % (18.0-47.0); %Monocytes 0.9 % (0.0-10.0); %Neutrophils 91.8 % (40.0-75.0); Hemoglobin 9.3 g/dL (13.5-17.5); Mean Corpuscular HGB CONC 32.5 g/dL (32.0-36.0); Mean Corpuscular Hemoglobin 28.1 pg (27.0-33.0); Mean Corpuscular Volume 86.4 fl (81.2-95.1); Mean Platelet Volume 9.7 fl (7.4-10.4); Platelet Count 290 10x3/uL (150-450); RBC Distribution Width 13.4 % (11.5-14.5); Red Blood Cell (RBC) Count 3.31 10x6/uL (4.32-5.72); White Blood Cell (WBC) Count 5.4 10x3/uL (3.5-10.5)
[2022-11-09 03:13] LABS: ALT (SGPT) 20 U/L (8-55); AST (SGOT) 19 U/L (5-34); Alkaline Phosphatase 178 U/L (40-110); Anion Gap 14 mmol/L (10-20); BUN (Urea Nitrogen) 49 mg/dL (8.4-25.7); Bilirubin, Total 0.8 mg/dL (0.2-1.2); Calc. Creatinine Clearance 50 mL/min (70-130); Calcium 8.7 mg/dL (7.8-10.44); Carbon Dioxide 35 mmol/L (23-31); Chloride 94 mmol/L (98-107); Estimated GFR 36; Globulin 3.7 g/dL (2.4-3.5); Glucose 253 mg/dL (80-115); Potassium 4.8 mmol/L (3.5-5.1); Protein, Total 6.7 g/dL (5.8-8.1); Sodium 138 mmol/L (136-145)
[2022-11-09] MEDS: Ipratropium/Albuterol 3 ML NEB NEB PRN ×3 (03:15→22:35)
[2022-11-09] MEDS: HumaLOG 300 UNITS/3 ML VIAL SC PRN ×3 (05:55→20:34)
[2022-11-09] MEDS: methylPREDNISolone Sod Succ 40 MG VIAL IVP SCH ×4 (05:56→23:49)
[2022-11-09] MEDS ORDERED: Furosemide 40 MG/4 ML VIAL SLOW IVP SCH (06:00)
[2022-11-09] MEDS: Budesonide 0.5 MG/2 ML NEB NEB SCH ×2 (07:05→19:22)
[2022-11-09] MEDS: glipiZIDE 10 MG TAB PO SCH ×2 (08:57→16:53)
[2022-11-09] MEDS: Carvedilol 12.5 MG TAB PO SCH (09:39)
[2022-11-09] MEDS ORDERED: Isosorbide Dinitrate 20 MG TAB PO SCH (09:45)
[2022-11-09] MEDS ORDERED: Carvedilol 25 MG TAB PO SCH (10:00)
[2022-11-09] MEDS: hydrALAZINE 25 MG TAB PO SCH ×3 (10:00→20:21)
[2022-11-09] MEDS: Aspirin 81 mg Enteric Coated Tablet PO SCH (10:50)
[2022-11-09] MEDS: Ascorbic Acid 500 mg Chewable Tablet PO SCH ×2 (10:50→20:22)
[2022-11-09] MEDS: Folic Acid/Vit B Comp W-C PO SCH (10:50)
[2022-11-09] MEDS ORDERED: Amlodipine 5 MG TAB PO SCH (11:00)
[2022-11-09] MEDS: Furosemide 40 MG/4 ML VIAL SLOW IVP SCH (15:55)
[2022-11-09] MEDS: Carvedilol 25 MG TAB PO SCH (16:53)
[2022-11-09] MEDS: Terazosin HCl 5 MG CAP PO SCH (20:20)
[2022-11-09] MEDS: Isosorbide Dinitrate 20 MG TAB PO SCH (20:21)
[2022-11-09] MEDS: Atorvastatin Calcium 40 MG TAB PO SCH (20:22)
[2022-11-10] MEDS: Ipratropium/Albuterol 3 ML NEB NEB PRN ×4 (03:00→22:20)
[2022-11-10 03:42] LABS: Anion Gap 14 mmol/L (10-20); BUN (Urea Nitrogen) 55 mg/dL (8.4-25.7); Calc. Creatinine Clearance 42 mL/min (70-130); Calcium 8.6 mg/dL (7.8-10.44); Carbon Dioxide 37 mmol/L (23-31); Chloride 93 mmol/L (98-107); Estimated GFR 33; Glucose 301 mg/dL (80-115); Magnesium 1.7 mg/dL (1.6-2.6); Potassium 4.5 mmol/L (3.5-5.1); Sodium 139 mmol/L (136-145)
[2022-11-10] MEDS: Furosemide 40 MG/4 ML VIAL SLOW IVP SCH ×2 (05:24→14:12)
[2022-11-10] MEDS: methylPREDNISolone Sod Succ 40 MG VIAL IVP SCH ×2 (05:24→11:45)
[2022-11-10] MEDS: HumaLOG 300 UNITS/3 ML VIAL SC PRN ×3 (05:59→21:02)
[2022-11-10] MEDS: Budesonide 0.5 MG/2 ML NEB NEB SCH ×2 (07:28→19:20)
[2022-11-10] MEDS: glipiZIDE 10 MG TAB PO SCH (08:26)
[2022-11-10] MEDS: Amlodipine 5 MG TAB PO SCH (08:26)
[2022-11-10] MEDS: Isosorbide Dinitrate 20 MG TAB PO SCH ×2 (08:27→20:26)
[2022-11-10] MEDS: Carvedilol 25 MG TAB PO SCH ×2 (08:27→16:26)
[2022-11-10] MEDS: hydrALAZINE 25 MG TAB PO SCH ×3 (08:27→20:25)
[2022-11-10] MEDS: Folic Acid/Vit B Comp W-C PO SCH (08:27)
[2022-11-10] MEDS: Aspirin 81 mg Enteric Coated Tablet PO SCH (08:27)
[2022-11-10] MEDS: Ascorbic Acid 500 mg Chewable Tablet PO SCH ×2 (08:30→20:25)
[2022-11-10] MEDS: Lantus 1000 UNITS/10 ML VIAL SC SCH ×2 (09:10→20:27)
[2022-11-10] MEDS: Atorvastatin Calcium 40 MG TAB PO SCH (20:25)
[2022-11-10] MEDS: Terazosin HCl 5 MG CAP PO SCH (20:26)
[2022-11-11] MEDS: Ipratropium/Albuterol 3 ML NEB NEB PRN ×4 (03:05→23:22)
[2022-11-11 03:54] LABS: BUN (Urea Nitrogen) 62 mg/dL (8.4-25.7); Calc. Creatinine Clearance 43 mL/min (70-130); Calcium 8.5 mg/dL (7.8-10.44); Estimated GFR 37; Glucose 228 mg/dL (80-115)
[2022-11-11 04:01] LABS: Anion Gap 15 mmol/L (10-20); Carbon Dioxide 35 mmol/L (23-31); Chloride 91 mmol/L (98-107); Potassium 3.9 mmol/L (3.5-5.1); Sodium 137 mmol/L (136-145)
[2022-11-11] MEDS: Furosemide 40 MG/4 ML VIAL SLOW IVP SCH ×2 (05:32→14:23)
[2022-11-11] MEDS: methylPREDNISolone Sod Succ 40 MG VIAL IVP SCH ×2 (05:34)
[2022-11-11] MEDS: Budesonide 0.5 MG/2 ML NEB NEB SCH ×2 (07:16→19:30)
[2022-11-11] MEDS: Amlodipine 5 MG TAB PO SCH (08:09)
[2022-11-11] MEDS: Aspirin 81 mg Enteric Coated Tablet PO SCH (08:10)
[2022-11-11] MEDS: Ascorbic Acid 500 mg Chewable Tablet PO SCH ×2 (08:10→20:42)
[2022-11-11] MEDS: hydrALAZINE 25 MG TAB PO SCH ×3 (08:10→20:42)
[2022-11-11] MEDS: Carvedilol 25 MG TAB PO SCH ×2 (08:10→16:13)
[2022-11-11] MEDS: Lantus 1000 UNITS/10 ML VIAL SC SCH ×2 (08:11→20:40)
[2022-11-11] MEDS: Folic Acid/Vit B Comp W-C PO SCH (08:12)
[2022-11-11 08:16] LABS: Actual Bicarbonate (HCO3a) 40.8 mEq/L (22-28); Base Excess (BEa) 13.6 mEq/L (-2.0 to +3.0); CO2 Tension 67.2 mmHg (35.0-45.0); Calcium, Ionized (arterial) 1.12 mmol/L (1.12-1.30); Carboxyhemoglobin (COHb) 0.3 gm% (0.0-3.0); Hematocrit-ABG 31 % (42.0-52.0); Hemoglobin (Hb) 10.7 g/dL (14.0-18.0); O2 Tension (PaO2), arterial 139.3 mmHg (> 80.0); Potassium - ABG Lab 3.96 mmol/L (3.70-5.30); Puncture Site RRA; pH, Arterial 7.401 (7.35-7.45)
[2022-11-11] MEDS: HumaLOG 300 UNITS/3 ML VIAL SC PRN ×4 (08:20→20:41)
[2022-11-11] MEDS: AcetaZOLAMIDE 250 MG TAB PO SCH ×2 (09:22→20:43)
[2022-11-11] MEDS: Isosorbide Dinitrate 20 MG TAB PO SCH ×2 (09:23→20:42)
[2022-11-11] MEDS ORDERED: Nystatin Powder 15 GM BOT TOP PRN (14:28)
[2022-11-11] MEDS: Atorvastatin Calcium 40 MG TAB PO SCH (20:42)
[2022-11-11] MEDS: Terazosin HCl 5 MG CAP PO SCH (20:43)
[2022-11-12] MEDS: Ipratropium/Albuterol 3 ML NEB NEB PRN (03:10)
[2022-11-12 03:28] LABS: #Monocytes 0.5 10x3/uL (0.0-1.1); #Neutrophils 5.2 10x3/uL (1.5-8.4); %Eosinophils 0.1 % (0.0-6.0); %Lymphocytes 17.8 % (18.0-47.0); %Monocytes 6.6 % (0.0-10.0); %Neutrophils 75.4 % (40.0-75.0); Hemoglobin 10.4 g/dL (13.5-17.5); Mean Corpuscular HGB CONC 31.7 g/dL (32.0-36.0); Mean Corpuscular Hemoglobin 27.8 pg (27.0-33.0); Mean Corpuscular Volume 87.7 fl (81.2-95.1); Mean Platelet Volume 9.5 fl (7.4-10.4); Platelet Count 246 10x3/uL (150-450); RBC Distribution Width 12.9 % (11.5-14.5); Red Blood Cell (RBC) Count 3.74 10x6/uL (4.32-5.72); White Blood Cell (WBC) Count 6.8 10x3/uL (3.5-10.5)
[2022-11-12 03:38] LABS: BUN (Urea Nitrogen) 67 mg/dL (8.4-25.7); Calc. Creatinine Clearance 45 mL/min (70-130); Calcium 8.4 mg/dL (7.8-10.44); Estimated GFR 38; Glucose 100 mg/dL (80-115)
[2022-11-12 04:07] LABS: Anion Gap 14 mmol/L (10-20); Carbon Dioxide 37 mmol/L (23-31); Chloride 93 mmol/L (98-107); Potassium 3.9 mmol/L (3.5-5.1); Sodium 140 mmol/L (136-145)
[2022-11-12] MEDS: Budesonide 0.5 MG/2 ML NEB NEB SCH ×2 (06:47→19:24)
[2022-11-12] MEDS: Lantus 1000 UNITS/10 ML VIAL SC SCH ×2 (08:33→20:40)
[2022-11-12] MEDS: AcetaZOLAMIDE 250 MG TAB PO SCH ×2 (08:37→20:37)
[2022-11-12] MEDS: Aspirin 81 mg Enteric Coated Tablet PO SCH (08:37)
[2022-11-12] MEDS: Amlodipine 5 MG TAB PO SCH (08:37)
[2022-11-12] MEDS: Carvedilol 25 MG TAB PO SCH ×2 (08:37→17:41)
[2022-11-12] MEDS: Furosemide 40 MG TAB PO SCH (08:37)
[2022-11-12] MEDS: Ascorbic Acid 500 mg Chewable Tablet PO SCH ×2 (08:38→20:37)
[2022-11-12] MEDS: hydrALAZINE 25 MG TAB PO SCH ×3 (08:38→20:38)
[2022-11-12] MEDS: Folic Acid/Vit B Comp W-C PO SCH (08:38)
[2022-11-12] MEDS: Isosorbide Dinitrate 20 MG TAB PO SCH ×2 (08:38→20:43)
[2022-11-12] MEDS ORDERED: methylPREDNISolone Sod Succ 40 MG VIAL IVP SCH (09:00)
[2022-11-12 09:07] VITALS: BMI 24.9
[2022-11-12] MEDS: Atorvastatin Calcium 40 MG TAB PO SCH (20:37)
[2022-11-12] MEDS: Terazosin HCl 5 MG CAP PO SCH (20:38)
[2022-11-12] MEDS: HumaLOG 300 UNITS/3 ML VIAL SC PRN (21:01)
[2022-11-13] MEDS: Ipratropium/Albuterol 3 ML NEB NEB PRN (06:55)
[2022-11-13] MEDS: Budesonide 0.5 MG/2 ML NEB NEB SCH (06:55)
[2022-11-13] MEDS ORDERED: predniSONE 20 MG TAB PO SCH (08:00)
[2022-11-13 08:07] VITALS: TEMP 97.9
[2022-11-13] MEDS: Folic Acid/Vit B Comp W-C PO SCH (08:37)
[2022-11-13] MEDS: Amlodipine 5 MG TAB PO SCH (08:37)
[2022-11-13] MEDS: Isosorbide Dinitrate 20 MG TAB PO SCH (08:38)
[2022-11-13] MEDS: Aspirin 81 mg Enteric Coated Tablet PO SCH (08:38)
[2022-11-13] MEDS: Ascorbic Acid 500 mg Chewable Tablet PO SCH (08:38)
[2022-11-13] MEDS: hydrALAZINE 25 MG TAB PO SCH ×2 (08:38→16:44)
[2022-11-13] MEDS: Furosemide 40 MG TAB PO SCH (08:38)
[2022-11-13] MEDS: Carvedilol 25 MG TAB PO SCH ×2 (08:39→16:44)
[2022-11-13 16:33] VITALS: BP 146/69
[2022-11-13] MEDS: HumaLOG 300 UNITS/3 ML VIAL SC PRN (16:51)
== END 2022-11-13 19:49 | DRG 291 ==
LOC: CSHERS 17:09 → EEVIPCON 17:09 → CSHICU 20:17
PROVIDERS: ADMIT Student in an Organized Health Care Education/Training Program; ATTEND Internal Medicine
PROC: 5A09557 Assistance with Respiratory Ventilation, Greater than 96 Consecutive Hours, Continuous Positive Airway Pressure (ICD-10-PCS; principal; 2022-11-06)
PROC: 4A133R1 Monitoring of Arterial Saturation, Peripheral, Percutaneous Approach (ICD-10-PCS; 2022-11-06)
PROC: 30233N1 Transfusion of Nonautologous Red Blood Cells into Peripheral Vein, Percutaneous Approach (ICD-10-PCS; 2022-11-07)
PROC: 5A0945A Assistance with Respiratory Ventilation, 24-96 Consecutive Hours, High Flow/Velocity Cannula (ICD-10-PCS; 2022-11-08)
DX: I13.0 Hypertensive heart and chronic kidney disease with heart failure and stage 1 through stage 4 chronic kidney disease, or unspecified chronic kidney disease (principal); I50.33 Acute on chronic diastolic (congestive) heart failure; J96.21 Acute and chronic respiratory failure with hypoxia; N17.9 Acute kidney failure, unspecified; E87.3 Alkalosis; J44.1 Chronic obstructive pulmonary disease with (acute) exacerbation; E87.5 Hyperkalemia; E83.42 Hypomagnesemia; I25.10 Atherosclerotic heart disease of native coronary artery without angina pectoris; E78.5 Hyperlipidemia, unspecified; I48.0 Paroxysmal atrial fibrillation; E11.22 Type 2 diabetes mellitus with diabetic chronic kidney disease; N18.31 Chronic kidney disease, stage 3a; D63.1 Anemia in chronic kidney disease; N40.1 Benign prostatic hyperplasia with lower urinary tract symptoms; R33.8 Other retention of urine; Z88.1 Allergy status to other antibiotic agents; Z79.82 Long term (current) use of aspirin; Z79.899 Other long term (current) drug therapy; Z79.84 Long term (current) use of oral hypoglycemic drugs; Z89.511 Acquired absence of right leg below knee; Z83.6 Family history of other diseases of the respiratory system; Z87.891 Personal history of nicotine dependence
CPT/HCPCS: 36415; 36416; 36430; 36600; 71045; 74018; 80048; 80053; 81003; 81015; 82728; 82805; 83540; 83550; 83605; 83735; 83880; 84443; 84484; 85025; 85046; 85610; 85730; 86850; 86870; 86900; 86901; 86905; 86922; 87040; 93005; 93010; 93306; 94640; 94660; 94760; 94762; 94799; 96374; 96375; 96376; 97139; J0612; J1650; J1815; J1940; J2405; J2920; J2930; J3475; J3490; J7512; J7611; J7620; J7626; P9016; P9047

== ENCOUNTER 2022-12-22 01:33 | Emergency (ER) | payer OTHER ==
[2022-12-22 02:39] LABS: #Basophils 0.1 10x3/uL (0.0-0.2); #Eosinphils 0.1 10x3/uL (0.0-0.5); #Monocytes 0.2 10x3/uL (0.0-1.1); #Neutrophils 6.1 10x3/uL (1.5-8.4); %Basophils 1.2 % (0.0-2.0); %Eosinophils 0.7 % (0.0-6.0); %Lymphocytes 7.4 % (18.0-47.0); %Monocytes 2.7 % (0.0-10.0); %Neutrophils 87.6 % (40.0-75.0); Hemoglobin 7.3 g/dL (13.5-17.5); Mean Corpuscular HGB CONC 32.7 g/dL (32.0-36.0); Mean Corpuscular Volume 85.4 fl (81.2-95.1); Mean Platelet Volume 8.8 fl (7.4-10.4); Platelet Count 293 10x3/uL (150-450); RBC Distribution Width 13.8 % (11.5-14.5); Red Blood Cell (RBC) Count 2.61 10x6/uL (4.32-5.72); White Blood Cell (WBC) Count 6.9 10x3/uL (3.5-10.5)
[2022-12-22 02:51] LABS: PTT 28.2 sec (22.0-33.0)
[2022-12-22 03:08] LABS: ALT (SGPT) 41 U/L (8-55); AST (SGOT) 18 U/L (5-34); Albumin 3.3 g/dL (3.4-4.8); Alkaline Phosphatase 219 U/L (40-110); Anion Gap 17 mmol/L (10-20); BUN (Urea Nitrogen) 42 mg/dL (8.4-25.7); Bilirubin, Total 0.7 mg/dL (0.2-1.2); Calc. Creatinine Clearance 0 mL/min (70-130); Calcium 8.3 mg/dL (7.8-10.44); Carbon Dioxide 23 mmol/L (23-31); Chloride 105 mmol/L (98-107); Estimated GFR 40; Globulin 3.6 g/dL (2.4-3.5); Glucose 235 mg/dL (80-115); Lipase 166 U/L (8-78); Potassium 5.5 mmol/L (3.5-5.1); Protein, Total 6.9 g/dL (5.8-8.1); Sodium 139 mmol/L (136-145)
== END 2022-12-22 09:14 | disposition short-term general hospital (02) ==
LOC: CSHERS 01:33 → EEVIPCON 01:33 → CSHERS 09:14
DX: J90 Pleural effusion, not elsewhere classified (principal); D64.9 Anemia, unspecified; E11.9 Type 2 diabetes mellitus without complications; I11.0 Hypertensive heart disease with heart failure; I50.9 Heart failure, unspecified; I25.10 Atherosclerotic heart disease of native coronary artery without angina pectoris; I48.91 Unspecified atrial fibrillation; Z79.899 Other long term (current) drug therapy; Z79.84 Long term (current) use of oral hypoglycemic drugs; Z79.82 Long term (current) use of aspirin
CPT/HCPCS: 36415; 71045; 80053; 83690; 83880; 84484; 85025; 85610; 85730; 93005

== ENCOUNTER 2023-05-20 01:15 | Inpatient (IN) | payer OTHER ==
[2023-05-20] MEDS ORDERED: Rocuronium Bromide 10 MG/ML (10ML VIAL) ONE (01:32)
[2023-05-20] MEDS ORDERED: NOREPINEPHRINE 8 MG/250 ML-D5W 0 ML ONE (01:32)
[2023-05-20] MEDS ORDERED: FENTANYL 2,000MCG/100-0.9%NACL 100 ML ONE (01:40)
[2023-05-20 01:50] LABS: Actual Bicarbonate (HCO3v) 33.6 mEq/L (22-28); Analyzer IN Cardio CS ER; Base Excess 7.8 mEq/L (-2 - +2); Calcium, Ionized (venous) 1.04 mmol/L (1.16-1.32); Chloride (VBG) 99 mmol/L (98-106); Critical Notified By: Udy, RRT; Hematocrit-VBG 27 % (42.0-52.0); Hemoglobin (Hb) 9.1 g/dL (13.1-17.2); Potassium (VBG) 3.67 mmol/L (3.70-5.30); Puncture Site Other Site; RapidComm Collect By Lab; Sodium 142 mmol/L (133-146)
[2023-05-20] MEDS ORDERED: niCARdipine 25 MG/10 ML SDV ONE ×2 (01:54→01:58)
[2023-05-20 02:03] LABS: #Basophils 0.1 10x3/uL (0.0-0.2); #Eosinphils 0.3 10x3/uL (0.0-0.5); #Monocytes 0.7 10x3/uL (0.0-1.1); #Neutrophils 5.4 10x3/uL (1.5-8.4); %Basophils 0.8 % (0.0-2.0); %Eosinophils 3.4 % (0.0-6.0); %Lymphocytes 23.3 % (18.0-47.0); %Monocytes 8.5 % (0.0-10.0); %Neutrophils 63.3 % (40.0-75.0); Hematocrit 23.5 % (38.8-50.0); Hemoglobin 8.1 g/dL (13.5-17.5); Mean Corpuscular HGB CONC 34.5 g/dL (32.0-36.0); Mean Corpuscular Hemoglobin 30.1 pg (27.0-33.0); Mean Corpuscular Volume 87.4 fl (81.2-95.1); Mean Platelet Volume 9.4 fl (7.4-10.4); Platelet Count 252 10x3/uL (150-450); RBC Distribution Width 12.9 % (11.5-14.5); Red Blood Cell (RBC) Count 2.69 10x6/uL (4.32-5.72); White Blood Cell (WBC) Count 8.6 10x3/uL (3.5-10.5)
[2023-05-20 02:26] LABS: ALT (SGPT) 40 U/L (8-55); AST (SGOT) 25 U/L (5-34); Albumin 3.3 g/dL (3.4-4.8); Alkaline Phosphatase 175 U/L (40-110); Anion Gap 19 mmol/L (10-20); BUN (Urea Nitrogen) 62 mg/dL (8.4-25.7); Bilirubin, Total 0.4 mg/dL (0.2-1.2); Calc. Creatinine Clearance 0 mL/min (70-130); Calcium 8.4 mg/dL (7.8-10.44); Carbon Dioxide 27 mmol/L (23-31); Chloride 101 mmol/L (98-107); Estimated GFR 36; Globulin 3.4 g/dL (2.4-3.5); Glucose 88 mg/dL (80-115); Potassium 3.9 mmol/L (3.5-5.1); Protein, Total 6.7 g/dL (5.8-8.1); Sodium 143 mmol/L (136-145)
[2023-05-20 02:33] LABS: Troponin I 0.011 ng/mL (< 0.028)
[2023-05-20 02:48] LABS: Acetaminophen Less than 10 mcg/mL (10.0-30.0); Alcohol Less than 10.0 mg/dL (Less than 10); Salicylate Less than 8.0 mg/dL (15.0-30.0)
[2023-05-20 02:53] LABS: Bilirubin Neg (Negative); Blood, Urine Negative (Negative); Glucose, Urine (Dipstick) Normal (Negative); Ketone, Urine Negative (Negative); Leukocyte Negative (Negative); Nitrite Negative (Negative); Protein, Urine (Dipstick) 100 mg/dl (Neg-Trace); Specific Gravity, Urine 1.005 (1.005-1.030); Urobilinogen Normal mg/dL (Less than 2)
[2023-05-20 02:56] LABS: Clarity Hazy (Clear)
[2023-05-20 03:00] LABS: Bacteria/HPF None Seen HPF (None Seen); CAUTI Indications for Culture Alt mental st,lethar; RBC/HPF None Seen HPF (0-3); Squamous Epithelial 0-3 HPF (0-3); WBC/HPF 0-3 HPF (0-3)
[2023-05-20 03:01] LABS: Urine Culture Reflex No No
[2023-05-20 03:04] LABS: Amphetamine Not Detected (NotDetected); Barbiturates Screen Not Detected (NotDetected); Benzodiazepine Screen Not Detected (NotDetected); Cocaine Metabolite Screen Not Detected (NotDetected); Methadone Not Detected (NotDetected); Methamphetamine Not Detected (NotDetected); Opiate Screen Not Detected (NotDetected); Oxycodone Screen Not Detected (NotDetected); Phencyclidine (PCP) Not Detected (NotDetected); THC/Cannabinoid Screen Not Detected (NotDetected); Tricyclic Screen Not Detected (NotDetected)
[2023-05-20 03:21] LABS: SARS-CoV-2 NAA Rapid Test Not Detected (NotDetected)
[2023-05-20] MEDS ORDERED: Acetaminophen 325 MG TAB PO PRN (04:02)
[2023-05-20] MEDS ORDERED: Dextrose 50% Abboject 50 ML SYRINGE SLOW IVP PRN (04:02)
[2023-05-20] MEDS ORDERED: Dextrose 5% in Water 1,000 ML IV PRN (04:02)
[2023-05-20] MEDS ORDERED: Ondansetron PF 4 MG/2 ML Vial IVP PRN (04:02)
[2023-05-20] MEDS ORDERED: Glucagon 1 MG/ML KIT IM PRN (04:02)
[2023-05-20] MEDS ORDERED: Ipratropium/Albuterol 3 ML NEB NEB PRN (04:07)
[2023-05-20 05:10] LABS: CK (CPK) 48 U/L (30-200); Magnesium 1.4 mg/dL (1.6-2.6)
[2023-05-20 05:16] LABS: Troponin I Less than 0.010 ng/mL (< 0.028)
[2023-05-20] MEDS: Mometasone/Formoterol 200/5 60 PUFF INH SCH ×2 (05:27→19:05)
[2023-05-20] MEDS: methylPREDNISolone Sod Succ 40 MG VIAL IVP SCH ×2 (06:05→17:16)
[2023-05-20] MEDS ORDERED: methylPREDNISolone Sod Succ 40 MG VIAL ONE (06:05)
[2023-05-20] MEDS: FENTANYL 2,000MCG/100-0.9%NACL 100 ML IVPB SCH ×2 (07:00→11:40)
[2023-05-20] MEDS: Aspirin 81 mg Enteric Coated Tablet PO SCH (07:56)
[2023-05-20] MEDS ORDERED: levETIRAcetam 500 MG/5 ML VIAL SLOW IVP SCH (08:00)
[2023-05-20] MEDS ORDERED: Pantoprazole 40 MG VIAL ONE (08:16)
[2023-05-20] MEDS ORDERED: levETIRAcetam 500 MG/5 ML VIAL ONE (08:16)
[2023-05-20] MEDS: Pantoprazole 40 MG VIAL IVP SCH (08:27)
[2023-05-20 09:06] LABS: #Basophils 0.1 10x3/uL (0.0-0.2); #Eosinphils 0.1 10x3/uL (0.0-0.5); #Monocytes 0.3 10x3/uL (0.0-1.1); #Neutrophils 6.2 10x3/uL (1.5-8.4); %Basophils 0.8 % (0.0-2.0); %Eosinophils 1.8 % (0.0-6.0); %Lymphocytes 12.6 % (18.0-47.0); %Monocytes 3.5 % (0.0-10.0); %Neutrophils 80.3 % (40.0-75.0); Hematocrit 23.2 % (38.8-50.0); Hemoglobin 7.8 g/dL (13.5-17.5); Mean Corpuscular HGB CONC 33.6 g/dL (32.0-36.0); Mean Corpuscular Hemoglobin 30.4 pg (27.0-33.0); Mean Corpuscular Volume 90.3 fl (81.2-95.1); Mean Platelet Volume 9.2 fl (7.4-10.4); Platelet Count 212 10x3/uL (150-450); RBC Distribution Width 12.9 % (11.5-14.5); Red Blood Cell (RBC) Count 2.57 10x6/uL (4.32-5.72); White Blood Cell (WBC) Count 7.7 10x3/uL (3.5-10.5)
[2023-05-20] MEDS ORDERED: Iopamidol 370 76% 100 ML VIAL ONE (10:24)
[2023-05-20] MEDS ORDERED: Magnesium 2 GM/50 ML BAG (IN WATER) ONE (10:34)
[2023-05-20] MEDS: Magnesium 2 GM/50 ML(in water) 2 GM in Premix 1 BAG IVPB SCH ×2 (10:39→11:55)
[2023-05-20] MEDS: Ipratropium/Albuterol 3 ML NEB NEB SCH ×4 (11:44→22:40)
[2023-05-20] MEDS ORDERED: FLU VACC QS2023-24(6MOS UP)/PF 60 MCG/0.5 ML SYRINGE IM ONE (13:30)
[2023-05-20 13:46] LABS: Hemoglobin A1c 5.2 % (4.0-6.0)
[2023-05-20] MEDS ORDERED: Ventilator Sedation Protocol 1 EACH FS SCH (17:13)
[2023-05-20] MEDS: HumaLOG 300 UNITS/3 ML VIAL SC PRN (17:23)
[2023-05-20] MEDS ORDERED: Propofol 1,000 MG/100 ML VIAL IV PRN (17:30)
[2023-05-20] MEDS ORDERED: Morphine 2 MG/ML VIAL SLOW IVP PRN (17:30)
[2023-05-20] MEDS ORDERED: FENTANYL 2,000MCG/100-0.9%NACL 100 ML IVPB SCH (17:30)
[2023-05-20] MEDS ORDERED: Lorazepam 2 MG/ML VIAL SLOW IVP PRN (17:30)
[2023-05-20] MEDS ORDERED: DISCONTINUE PREVIOUS NARCOTIC PAIN MEDICATIONS AND BENZODIAZEPINES FS SCH (17:30)
[2023-05-20] MEDS ORDERED: Fentanyl BOLUS 250 ML IVPB PRN (17:30)
[2023-05-20] MEDS ORDERED: Propofol BOLUS 1,000 MG/100 ML VIAL IV PRN (17:30)
[2023-05-20] MEDS: Dextrose 5 %-0.45 % NaCl 1,000 ML IV SCH (17:56)
[2023-05-20] MEDS: Atorvastatin Calcium 40 MG TAB PO SCH (20:23)
[2023-05-20] MEDS: levETIRAcetam 500 MG/5 ML VIAL SLOW IVP SCH (20:23)
[2023-05-21] MEDS: HumaLOG 300 UNITS/3 ML VIAL SC PRN ×4 (00:30→16:33)
[2023-05-21] MEDS: Ipratropium/Albuterol 3 ML NEB NEB SCH ×6 (02:20→22:50)
[2023-05-21 03:18] LABS: #Basophils 0.1 10x3/uL (0.0-0.2); #Eosinphils 0.2 10x3/uL (0.0-0.5); #Monocytes 0.8 10x3/uL (0.0-1.1); #Neutrophils 9.1 10x3/uL (1.5-8.4); %Basophils 0.5 % (0.0-2.0); %Eosinophils 1.4 % (0.0-6.0); %Lymphocytes 7.1 % (18.0-47.0); %Monocytes 7.2 % (0.0-10.0); %Neutrophils 83.2 % (40.0-75.0); Hematocrit 21.2 % (38.8-50.0); Hemoglobin 7.3 g/dL (13.5-17.5); Mean Corpuscular HGB CONC 34.4 g/dL (32.0-36.0); Mean Corpuscular Hemoglobin 30.8 pg (27.0-33.0); Mean Corpuscular Volume 89.5 fl (81.2-95.1); Mean Platelet Volume 9.5 fl (7.4-10.4); Platelet Count 227 10x3/uL (150-450); Red Blood Cell (RBC) Count 2.37 10x6/uL (4.32-5.72)
[2023-05-21 03:34] LABS: Actual Bicarbonate (HCO3a) 28.2 mEq/L (22-28); Analyzer IN Cardio CS ICU; Base Excess (BEa) 3.1 mEq/L (-2.0 to +3.0); CO2 Tension 45.9 mmHg (35.0-45.0); Calcium, Ionized (arterial) 1.01 mmol/L (1.12-1.30); Carboxyhemoglobin (COHb) 0.3 gm% (0.0-3.0); Critical Notified By: CP.PH; Hematocrit-ABG 26 % (42.0-52.0); O2 Tension (PaO2), arterial 131.8 mmHg (> 80.0); Potassium - ABG Lab 3.37 mmol/L (3.70-5.30); Puncture Site RBA; RapidComm Collect By CP.PH; pH, Arterial 7.407 (7.35-7.45)
[2023-05-21 03:44] LABS: Anion Gap 23 mmol/L (10-20); BUN (Urea Nitrogen) 79 mg/dL (8.4-25.7); Calc. Creatinine Clearance 0 mL/min (70-130); Calcium 8.1 mg/dL (7.8-10.44); Carbon Dioxide 24 mmol/L (23-31); Chloride 97 mmol/L (98-107); Estimated GFR 18; Glucose 277 mg/dL (80-115); Magnesium 2.3 mg/dL (1.6-2.6); Potassium 3.5 mmol/L (3.5-5.1); Sodium 140 mmol/L (136-145)
[2023-05-21] MEDS: methylPREDNISolone Sod Succ 40 MG VIAL IVP SCH ×2 (05:11→17:46)
[2023-05-21] MEDS: Dextrose 5 %-0.45 % NaCl 1,000 ML IV SCH (06:07)
[2023-05-21] MEDS ORDERED: DC Sedation Protocol FS ONE (07:07)
[2023-05-21] MEDS: Mometasone/Formoterol 200/5 60 PUFF INH SCH ×2 (07:10→19:20)
[2023-05-21] MEDS: Aspirin 81 mg Enteric Coated Tablet PO SCH (08:16)
[2023-05-21] MEDS: Sodium Chloride 0.9% 1,000 ML IV SCH ×3 (08:16→23:12)
[2023-05-21] MEDS: Pantoprazole 40 MG VIAL IVP SCH (08:17)
[2023-05-21] MEDS: levETIRAcetam 500 MG/5 ML VIAL SLOW IVP SCH (08:18)
[2023-05-21 08:57] LABS: Bilirubin Neg (Negative); Blood, Urine 150 (Negative); Clarity Cloudy (Clear); Glucose, Urine (Dipstick) 100 mg/dL (Negative); Ketone, Urine Negative (Negative); Leukocyte 500 (Negative); Nitrite Negative (Negative); Protein, Urine (Dipstick) 100 mg/dl (Neg-Trace); Urobilinogen Normal mg/dL (Less than 2)
[2023-05-21 09:19] LABS: WBC/HPF 21-50 HPF (0-3)
[2023-05-21 09:24] LABS: Squamous Epithelial 0-3 HPF (0-3)
[2023-05-21 09:26] LABS: Bacteria/HPF 2+ HPF (None Seen); Transitional Epithelial 0-3 HPF (None Seen)
[2023-05-21 10:00] LABS: Creatinine, Urine 124.54 mg/dL (63-166)
[2023-05-21] MEDS ORDERED: glipiZIDE 5 MG TAB PO SCH (12:45)
[2023-05-21 16:22] LABS: Anion Gap 18 mmol/L (10-20); BUN (Urea Nitrogen) 81 mg/dL (8.4-25.7); Calc. Creatinine Clearance 0 mL/min (70-130); Carbon Dioxide 27 mmol/L (23-31); Chloride 99 mmol/L (98-107); Estimated GFR 19; Glucose 234 mg/dL (80-115); Potassium 3.6 mmol/L (3.5-5.1); Sodium 140 mmol/L (136-145)
[2023-05-21] MEDS: Atorvastatin Calcium 40 MG TAB PO SCH (20:25)
[2023-05-21] MEDS: Folic Acid 1 MG TAB PO SCH (20:25)
[2023-05-21] MEDS: levETIRAcetam 500 MG TAB PO SCH (20:25)
[2023-05-21] MEDS: Tamsulosin HCl 0.4 MG CAP PO SCH (20:26)
[2023-05-21] MEDS: Cyanocobalamin (Vitamin B-12) 1,000 MCG TAB PO SCH (20:26)
[2023-05-22] MEDS: Ipratropium/Albuterol 3 ML NEB NEB SCH ×6 (03:00→22:36)
[2023-05-22 03:42] LABS: #Monocytes 0.5 10x3/uL (0.0-1.1); #Neutrophils 6.7 10x3/uL (1.5-8.4); %Basophils 0.3 % (0.0-2.0); %Eosinophils 0.1 % (0.0-6.0); %Lymphocytes 7.1 % (18.0-47.0); %Monocytes 6.4 % (0.0-10.0); %Neutrophils 85.2 % (40.0-75.0); Hematocrit 19.9 % (38.8-50.0); Hemoglobin 6.6 g/dL (13.5-17.5); Mean Corpuscular HGB CONC 33.2 g/dL (32.0-36.0); Mean Corpuscular Volume 90.5 fl (81.2-95.1); Platelet Count 217 10x3/uL (150-450); RBC Distribution Width 12.9 % (11.5-14.5); White Blood Cell (WBC) Count 7.8 10x3/uL (3.5-10.5)
[2023-05-22 03:50] LABS: Albumin 3.1 g/dL (3.4-4.8); Anion Gap 14 mmol/L (10-20); BUN (Urea Nitrogen) 65 mg/dL (8.4-25.7); BUN/Creatinine Ratio 23.47; Calc. Creatinine Clearance 0 mL/min (70-130); Carbon Dioxide 28 mmol/L (23-31); Chloride 103 mmol/L (98-107); Estimated GFR 25; Glucose 221 mg/dL (80-115); Iron 51 ug/dL (65-175); Iron Binding Capacity, Total 160 mcg/dL (261-462); Phosphorus 3.8 mg/dL (2.3-4.7); Potassium 4.4 mmol/L (3.5-5.1); Sodium 141 mmol/L (136-145)
[2023-05-22] MEDS: Sodium Chloride 0.9% 1,000 ML IV SCH ×3 (05:28→14:14)
[2023-05-22] MEDS: methylPREDNISolone Sod Succ 40 MG VIAL IVP SCH ×2 (05:31→17:15)
[2023-05-22] MEDS ORDERED: Epoetin (ESRD) 10,000 UNITS/ML VIAL SC SCH (06:15)
[2023-05-22] MEDS: Mometasone/Formoterol 200/5 60 PUFF INH SCH ×2 (07:29→19:01)
[2023-05-22] MEDS ORDERED: glipiZIDE 10 MG TAB PO SCH (07:30)
[2023-05-22] MEDS: Aspirin 81 mg Enteric Coated Tablet PO SCH (08:43)
[2023-05-22] MEDS: levETIRAcetam 500 MG TAB PO SCH ×2 (08:43→20:37)
[2023-05-22] MEDS: Finasteride 5 MG TAB PO SCH (08:43)
[2023-05-22] MEDS ORDERED: Lantus 1000 UNITS/10 ML VIAL SC SCH (09:00)
[2023-05-22] MEDS ORDERED: EPOETIN ALFA-EPBX (ESRD) 10,000 UNITS/ML VIAL SC SCH (10:00)
[2023-05-22] MEDS ORDERED: Ipratropium/Albuterol 3 ML NEB NEB PRN (13:48)
[2023-05-22] MEDS ORDERED: Sodium Chloride 0.9% 1,000 ML IV SCH (14:15)
[2023-05-22] MEDS: Guaifenesin DM 100-10/5 ML UDCUP PO PRN (15:30)
[2023-05-22 16:31] LABS: #Monocytes 0.4 10x3/uL (0.0-1.1); #Neutrophils 6.9 10x3/uL (1.5-8.4); %Basophils 0.3 % (0.0-2.0); %Eosinophils 0.1 % (0.0-6.0); %Lymphocytes 6.4 % (18.0-47.0); %Monocytes 5.2 % (0.0-10.0); %Neutrophils 86.9 % (40.0-75.0); Hematocrit 24.8 % (38.8-50.0); Hemoglobin 8.3 g/dL (13.5-17.5); Mean Corpuscular HGB CONC 33.5 g/dL (32.0-36.0); Mean Corpuscular Hemoglobin 30.1 pg (27.0-33.0); Mean Corpuscular Volume 89.9 fl (81.2-95.1); Mean Platelet Volume 9.5 fl (7.4-10.4); Platelet Count 242 10x3/uL (150-450); RBC Distribution Width 14.3 % (11.5-14.5); Red Blood Cell (RBC) Count 2.76 10x6/uL (4.32-5.72); White Blood Cell (WBC) Count 7.9 10x3/uL (3.5-10.5)
[2023-05-22 16:37] LABS: Glucose 322 mg/dL (80-115)
[2023-05-22] MEDS: HumaLOG 300 UNITS/3 ML VIAL SC PRN (17:16)
[2023-05-22] MEDS: Tamsulosin HCl 0.4 MG CAP PO SCH (20:37)
[2023-05-22] MEDS: Atorvastatin Calcium 40 MG TAB PO SCH (20:39)
[2023-05-22] MEDS: guaiFENesin ER 600 MG TAB PO SCH (20:39)
[2023-05-22] MEDS: Cyanocobalamin (Vitamin B-12) 1,000 MCG TAB PO SCH (20:39)
[2023-05-22] MEDS: Folic Acid 1 MG TAB PO SCH (20:39)
[2023-05-22] MEDS: Lantus 1000 UNITS/10 ML VIAL SC SCH (20:40)
[2023-05-22] MEDS ORDERED: Furosemide 20 MG/2 ML VIAL SLOW IVP SCH (22:30)
[2023-05-23] MEDS: Ipratropium/Albuterol 3 ML NEB NEB SCH ×6 (02:43→22:50)
[2023-05-23 04:19] LABS: #Monocytes 0.4 10x3/uL (0.0-1.1); #Neutrophils 7.9 10x3/uL (1.5-8.4); %Basophils 0.2 % (0.0-2.0); %Eosinophils 0.1 % (0.0-6.0); %Lymphocytes 7.8 % (18.0-47.0); %Monocytes 4.8 % (0.0-10.0); %Neutrophils 86.1 % (40.0-75.0); Hematocrit 24.6 % (38.8-50.0); Hemoglobin 8.2 g/dL (13.5-17.5); Mean Corpuscular HGB CONC 33.3 g/dL (32.0-36.0); Mean Corpuscular Hemoglobin 29.5 pg (27.0-33.0); Mean Corpuscular Volume 88.5 fl (81.2-95.1); Mean Platelet Volume 9.2 fl (7.4-10.4); Platelet Count 221 10x3/uL (150-450); Red Blood Cell (RBC) Count 2.78 10x6/uL (4.32-5.72); White Blood Cell (WBC) Count 9.2 10x3/uL (3.5-10.5)
[2023-05-23 04:26] LABS: ALT (SGPT) 35 U/L (8-55); AST (SGOT) 25 U/L (5-34); Alkaline Phosphatase 150 U/L (40-110); Anion Gap 14 mmol/L (10-20); BUN (Urea Nitrogen) 52 mg/dL (8.4-25.7); Bilirubin, Total 0.5 mg/dL (0.2-1.2); CK (CPK) 432 U/L (30-200); Calc. Creatinine Clearance 0 mL/min (70-130); Calcium 8.4 mg/dL (7.8-10.44); Carbon Dioxide 25 mmol/L (23-31); Chloride 105 mmol/L (98-107); Estimated GFR 35; Globulin 3.4 g/dL (2.4-3.5); Glucose 253 mg/dL (80-115); Potassium 4.6 mmol/L (3.5-5.1); Protein, Total 6.4 g/dL (5.8-8.1); Sodium 139 mmol/L (136-145)
[2023-05-23] MEDS: methylPREDNISolone Sod Succ 40 MG VIAL IVP SCH (05:34)
[2023-05-23] MEDS: HumaLOG 300 UNITS/3 ML VIAL SC PRN ×3 (06:03→16:34)
[2023-05-23] MEDS: Mometasone/Formoterol 200/5 60 PUFF INH SCH ×2 (07:15→18:40)
[2023-05-23] MEDS: levETIRAcetam 500 MG TAB PO SCH ×2 (08:22→21:38)
[2023-05-23] MEDS: Lantus 1000 UNITS/10 ML VIAL SC SCH ×2 (08:23→21:42)
[2023-05-23] MEDS: Aspirin 81 mg Enteric Coated Tablet PO SCH (08:23)
[2023-05-23] MEDS: guaiFENesin ER 600 MG TAB PO SCH ×2 (08:23→21:41)
[2023-05-23] MEDS: Finasteride 5 MG TAB PO SCH (08:23)
[2023-05-23] MEDS ORDERED: Nitroglycerin 0.4 MG TAB (25 Tab Bottle) SL PRN (08:41)
[2023-05-23] MEDS ORDERED: Sodium Chloride 0.9% 1,000 ML IV SCH (11:30)
[2023-05-23] MEDS: Albumin 25% 25 GM/100 ML BOT IVPB SCH ×2 (11:49→17:00)
[2023-05-23] MEDS: Furosemide 20 MG/2 ML VIAL SLOW IVP SCH ×2 (14:24→22:17)
[2023-05-23] MEDS: predniSONE 20 MG TAB PO SCH (16:49)
[2023-05-23] MEDS: Folic Acid 1 MG TAB PO SCH (21:40)
[2023-05-23] MEDS: Atorvastatin Calcium 40 MG TAB PO SCH (21:41)
[2023-05-23] MEDS: Cyanocobalamin (Vitamin B-12) 1,000 MCG TAB PO SCH (21:41)
[2023-05-23] MEDS: Tamsulosin HCl 0.4 MG CAP PO SCH (22:18)
[2023-05-23] MEDS: Guaifenesin DM 100-10/5 ML UDCUP PO PRN (22:20)
[2023-05-24] MEDS ORDERED: Ipratropium/Albuterol 3 ML NEB NEB PRN (00:41)
[2023-05-24] MEDS ORDERED: Nitroglycerin 0.4 MG TAB (25 Tab Bottle) SL SCH (00:45)
[2023-05-24] MEDS ORDERED: Lorazepam 1 MG TAB PO SCH (00:45)
[2023-05-24] MEDS: Albumin 25% 25 GM/100 ML BOT IVPB SCH ×2 (00:46→06:22)
[2023-05-24 01:40] LABS: #Eosinphils 0.2 10x3/uL (0.0-0.5); #Monocytes 0.4 10x3/uL (0.0-1.1); #Neutrophils 6.1 10x3/uL (1.5-8.4); %Basophils 0.3 % (0.0-2.0); %Eosinophils 3.1 % (0.0-6.0); %Lymphocytes 7.7 % (18.0-47.0); %Monocytes 5.5 % (0.0-10.0); %Neutrophils 82.7 % (40.0-75.0); Hematocrit 23.2 % (38.8-50.0); Hemoglobin 7.9 g/dL (13.5-17.5); Mean Corpuscular HGB CONC 34.1 g/dL (32.0-36.0); Mean Corpuscular Hemoglobin 29.6 pg (27.0-33.0); Mean Corpuscular Volume 86.9 fl (81.2-95.1); Platelet Count 197 10x3/uL (150-450); RBC Distribution Width 13.9 % (11.5-14.5); Red Blood Cell (RBC) Count 2.67 10x6/uL (4.32-5.72); White Blood Cell (WBC) Count 7.4 10x3/uL (3.5-10.5)
[2023-05-24 01:55] LABS: Troponin I 0.027 ng/mL (< 0.028)
[2023-05-24] MEDS: Ipratropium/Albuterol 3 ML NEB NEB SCH ×6 (02:30→22:16)
[2023-05-24 02:37] LABS: ALT (SGPT) 35 U/L (8-55); AST (SGOT) 19 U/L (5-34); Albumin 3.5 g/dL (3.4-4.8); Alkaline Phosphatase 134 U/L (40-110); Anion Gap 17 mmol/L (10-20); BUN (Urea Nitrogen) 51 mg/dL (8.4-25.7); Bilirubin, Total 0.9 mg/dL (0.2-1.2); CK (CPK) 194 U/L (30-200); Calc. Creatinine Clearance 0 mL/min (70-130); Calcium 8.7 mg/dL (7.8-10.44); Carbon Dioxide 22 mmol/L (23-31); Chloride 103 mmol/L (98-107); Estimated GFR 34; Glucose 259 mg/dL (80-115); Magnesium 1.4 mg/dL (1.6-2.6); Potassium 4.1 mmol/L (3.5-5.1); Protein, Total 6.5 g/dL (5.8-8.1); Sodium 138 mmol/L (136-145)
[2023-05-24] MEDS: Furosemide 20 MG/2 ML VIAL SLOW IVP SCH ×3 (06:21→21:32)
[2023-05-24] MEDS ORDERED: Magnesium Sulfate 4 GM in Sodium Chloride 0.9% 250 ML 250 ML IVPB SCH (06:45)
[2023-05-24] MEDS: HumaLOG 300 UNITS/3 ML VIAL SC PRN ×4 (06:47→21:34)
[2023-05-24] MEDS: Magnesium 2 GM/50 ML(in water) 2 GM in Premix 1 BAG IVPB SCH ×2 (06:49→08:02)
[2023-05-24] MEDS: Mometasone/Formoterol 200/5 60 PUFF INH SCH ×2 (07:40→19:50)
[2023-05-24] MEDS: Lantus 1000 UNITS/10 ML VIAL SC SCH (08:01)
[2023-05-24] MEDS: Aspirin 81 mg Enteric Coated Tablet PO SCH (08:03)
[2023-05-24] MEDS: guaiFENesin ER 600 MG TAB PO SCH ×2 (08:03→21:32)
[2023-05-24] MEDS: levETIRAcetam 500 MG TAB PO SCH ×2 (08:03→21:35)
[2023-05-24] MEDS: Finasteride 5 MG TAB PO SCH (08:03)
[2023-05-24] MEDS: predniSONE 20 MG TAB PO SCH ×2 (08:03→16:35)
[2023-05-24 08:53] LABS: Troponin I 0.166 ng/mL (< 0.028)
[2023-05-24 15:26] LABS: Troponin I 0.246 ng/mL (< 0.028)
[2023-05-24] MEDS ORDERED: Lantus 1000 UNITS/10 ML VIAL SC SCH (21:00)
[2023-05-24] MEDS: Tamsulosin HCl 0.4 MG CAP PO SCH (21:33)
[2023-05-24] MEDS: Atorvastatin Calcium 40 MG TAB PO SCH (21:33)
[2023-05-24] MEDS: Folic Acid 1 MG TAB PO SCH (21:33)
[2023-05-24] MEDS: Cyanocobalamin (Vitamin B-12) 1,000 MCG TAB PO SCH (21:35)
[2023-05-25] MEDS: Ipratropium/Albuterol 3 ML NEB NEB SCH ×6 (02:52→22:35)
[2023-05-25 03:46] LABS: #Monocytes 0.3 10x3/uL (0.0-1.1); #Neutrophils 5.2 10x3/uL (1.5-8.4); %Basophils 0.2 % (0.0-2.0); %Eosinophils 0.2 % (0.0-6.0); %Lymphocytes 8.9 % (18.0-47.0); %Monocytes 4.4 % (0.0-10.0); %Neutrophils 85.5 % (40.0-75.0); Hematocrit 24.7 % (38.8-50.0); Hemoglobin 8.5 g/dL (13.5-17.5); Mean Corpuscular HGB CONC 34.4 g/dL (32.0-36.0); Mean Corpuscular Hemoglobin 29.6 pg (27.0-33.0); Mean Corpuscular Volume 86.1 fl (81.2-95.1); Mean Platelet Volume 9.4 fl (7.4-10.4); Platelet Count 229 10x3/uL (150-450); RBC Distribution Width 13.4 % (11.5-14.5); Red Blood Cell (RBC) Count 2.87 10x6/uL (4.32-5.72); White Blood Cell (WBC) Count 6.1 10x3/uL (3.5-10.5)
[2023-05-25 03:47] LABS: ALT (SGPT) 38 U/L (8-55); AST (SGOT) 15 U/L (5-34); Albumin 3.6 g/dL (3.4-4.8); Alkaline Phosphatase 145 U/L (40-110); Anion Gap 16 mmol/L (10-20); BUN (Urea Nitrogen) 57 mg/dL (8.4-25.7); Calc. Creatinine Clearance 36 mL/min (70-130); Calcium 9.3 mg/dL (7.8-10.44); Carbon Dioxide 26 mmol/L (23-31); Chloride 101 mmol/L (98-107); Estimated GFR 32; Globulin 3.3 g/dL (2.4-3.5); Glucose 323 mg/dL (80-115); Potassium 4.5 mmol/L (3.5-5.1); Sodium 138 mmol/L (136-145)
[2023-05-25 03:48] LABS: Protein, Total 6.9 g/dL (5.8-8.1)
[2023-05-25 04:00] LABS: Troponin I 0.147 ng/mL (< 0.028)
[2023-05-25] MEDS: Furosemide 20 MG/2 ML VIAL SLOW IVP SCH (06:06)
[2023-05-25] MEDS: HumaLOG 300 UNITS/3 ML VIAL SC PRN ×5 (06:06→21:11)
[2023-05-25] MEDS: Mometasone/Formoterol 200/5 60 PUFF INH SCH ×2 (06:50→19:28)
[2023-05-25] MEDS ORDERED: predniSONE 20 MG TAB PO SCH (08:00)
[2023-05-25] MEDS: Empagliflozin 10 MG TAB PO SCH (08:09)
[2023-05-25] MEDS: guaiFENesin ER 600 MG TAB PO SCH ×2 (08:09→21:06)
[2023-05-25] MEDS: levETIRAcetam 500 MG TAB PO SCH ×2 (08:09→21:07)
[2023-05-25] MEDS: Finasteride 5 MG TAB PO SCH (08:09)
[2023-05-25] MEDS: DULoxetine 20 MG CAP PO SCH (08:09)
[2023-05-25] MEDS: Aspirin 81 mg Enteric Coated Tablet PO SCH (08:09)
[2023-05-25] MEDS: Lantus 1000 UNITS/10 ML VIAL SC SCH ×2 (08:10→21:06)
[2023-05-25] MEDS ORDERED: Isosorbide Mononitrate 30 MG ER.TAB PO SCH (09:30)
[2023-05-25] MEDS: Midodrine HCl 2.5 MG TAB PO SCH ×2 (15:15→22:24)
[2023-05-25] MEDS: Atorvastatin Calcium 40 MG TAB PO SCH (21:05)
[2023-05-25] MEDS: Cyanocobalamin (Vitamin B-12) 1,000 MCG TAB PO SCH (21:05)
[2023-05-25] MEDS: Folic Acid 1 MG TAB PO SCH (21:06)
[2023-05-26] MEDS: Ipratropium/Albuterol 3 ML NEB NEB SCH ×5 (03:35→18:31)
[2023-05-26 03:48] LABS: #Monocytes 0.4 10x3/uL (0.0-1.1); #Neutrophils 5.9 10x3/uL (1.5-8.4); %Basophils 0.1 % (0.0-2.0); %Eosinophils 0.1 % (0.0-6.0); %Lymphocytes 8.3 % (18.0-47.0); %Monocytes 5.7 % (0.0-10.0); %Neutrophils 85.1 % (40.0-75.0); Hematocrit 24.8 % (38.8-50.0); Hemoglobin 8.6 g/dL (13.5-17.5); Mean Corpuscular HGB CONC 34.7 g/dL (32.0-36.0); Mean Corpuscular Hemoglobin 30.2 pg (27.0-33.0); Mean Platelet Volume 9.9 fl (7.4-10.4); Platelet Count 264 10x3/uL (150-450); RBC Distribution Width 13.3 % (11.5-14.5); Red Blood Cell (RBC) Count 2.85 10x6/uL (4.32-5.72); White Blood Cell (WBC) Count 6.9 10x3/uL (3.5-10.5)
[2023-05-26 04:07] LABS: Anion Gap 18 mmol/L (10-20); BUN (Urea Nitrogen) 55 mg/dL (8.4-25.7); Calc. Creatinine Clearance 35 mL/min (70-130); Calcium 9.1 mg/dL (7.8-10.44); Carbon Dioxide 23 mmol/L (23-31); Chloride 103 mmol/L (98-107); Estimated GFR 30; Glucose 277 mg/dL (80-115); Potassium 4.5 mmol/L (3.5-5.1); Sodium 139 mmol/L (136-145)
[2023-05-26] MEDS: Midodrine HCl 2.5 MG TAB PO SCH (05:44)
[2023-05-26] MEDS: HumaLOG 300 UNITS/3 ML VIAL SC PRN (05:47)
[2023-05-26] MEDS ORDERED: Sodium Chloride 0.9% 1,000 ML IV SCH (07:45)
[2023-05-26 07:55] LABS: #Monocytes 0.5 10x3/uL (0.0-1.1); #Neutrophils 7.1 10x3/uL (1.5-8.4); %Basophils 0.1 % (0.0-2.0); %Eosinophils 0.4 % (0.0-6.0); %Lymphocytes 12.4 % (18.0-47.0); %Monocytes 6.1 % (0.0-10.0); Hematocrit 25.3 % (38.8-50.0); Hemoglobin 8.8 g/dL (13.5-17.5); Mean Corpuscular HGB CONC 34.8 g/dL (32.0-36.0); Mean Corpuscular Hemoglobin 30.2 pg (27.0-33.0); Mean Corpuscular Volume 86.9 fl (81.2-95.1); Mean Platelet Volume 9.4 fl (7.4-10.4); Platelet Count 278 10x3/uL (150-450); RBC Distribution Width 13.4 % (11.5-14.5); Red Blood Cell (RBC) Count 2.91 10x6/uL (4.32-5.72); White Blood Cell (WBC) Count 8.9 10x3/uL (3.5-10.5)
[2023-05-26 08:03] LABS: Prothrombin Time 10.7 sec (9.5-12.1)
[2023-05-26 08:04] LABS: ALT (SGPT) 75 U/L (8-55); AST (SGOT) 28 U/L (5-34); Albumin 3.5 g/dL (3.4-4.8); Alkaline Phosphatase 144 U/L (40-110); Anion Gap 16 mmol/L (10-20); BUN (Urea Nitrogen) 56 mg/dL (8.4-25.7); Bilirubin, Total 0.5 mg/dL (0.2-1.2); Calc. Creatinine Clearance 33 mL/min (70-130); Calcium 9.1 mg/dL (7.8-10.44); Carbon Dioxide 25 mmol/L (23-31); Chloride 104 mmol/L (98-107); Estimated GFR 28; Globulin 2.9 g/dL (2.4-3.5); Glucose 233 mg/dL (80-115); Potassium 4.1 mmol/L (3.5-5.1); Protein, Total 6.4 g/dL (5.8-8.1); Sodium 141 mmol/L (136-145)
[2023-05-26] MEDS ORDERED: hydrALAZINE 20 MG/ML VIAL SLOW IVP PRN (08:16)
[2023-05-26] MEDS: Mometasone/Formoterol 200/5 60 PUFF INH SCH ×2 (08:28→18:31)
[2023-05-26] MEDS ORDERED: Dextrose 5 % And 0.9 % NaCl 1,000 ML IV SCH (08:30)
[2023-05-26] MEDS ORDERED: Isosorbide Mononitrate 30 MG ER.TAB PO SCH (09:00)
[2023-05-26] MEDS ORDERED: Aspirin 300 MG Suppository PR SCH (09:00)
[2023-05-26] MEDS ORDERED: methylPREDNISolone Sod Succ 40 MG VIAL IVP SCH (09:00)
[2023-05-26] MEDS: DULoxetine 20 MG CAP PO SCH (11:19)
[2023-05-26] MEDS: guaiFENesin ER 600 MG TAB PO SCH (11:19)
[2023-05-26] MEDS: Empagliflozin 10 MG TAB PO SCH (11:19)
[2023-05-26] MEDS: Aspirin 81 mg Enteric Coated Tablet PO SCH (11:19)
[2023-05-26] MEDS: Finasteride 5 MG TAB PO SCH (11:19)
[2023-05-26 18:32] VITALS: BP 176/93
[2023-05-26 18:33] VITALS: TEMP 97.7
== END 2023-05-26 19:25 | disposition short-term general hospital (02) | DRG 70 ==
LOC: EEVIPCON 01:15 → CSHERS 01:15 → CSHERHOLD 04:02 → CSHIMCU 11:34 → CSHTELE 05-25 16:56 → CSHIMCU 05-26 08:13
PROVIDERS: ADMIT Student in an Organized Health Care Education/Training Program; ATTEND Internal Medicine
PROC: 5A1945Z Respiratory Ventilation, 24-96 Consecutive Hours (ICD-10-PCS; principal; 2023-05-20)
PROC: 0BH17EZ Insertion of Endotracheal Airway into Trachea, Via Natural or Artificial Opening (ICD-10-PCS; 2023-05-20)
PROC: 0DH67UZ Insertion of Feeding Device into Stomach, Via Natural or Artificial Opening (ICD-10-PCS; 2023-05-20)
PROC: 3E0G76Z Introduction of Nutritional Substance into Upper GI, Via Natural or Artificial Opening (ICD-10-PCS; 2023-05-20)
PROC: 4A043R1 Measurement of Venous Saturation, Peripheral, Percutaneous Approach (ICD-10-PCS; 2023-05-20)
PROC: 3E033XZ Introduction of Vasopressor into Peripheral Vein, Percutaneous Approach (ICD-10-PCS; 2023-05-20)
PROC: 30233J1 Transfusion of Nonautologous Serum Albumin into Peripheral Vein, Percutaneous Approach (ICD-10-PCS; 2023-05-20)
PROC: 4A033R1 Measurement of Arterial Saturation, Peripheral, Percutaneous Approach (ICD-10-PCS; 2023-05-21)
PROC: 30233N1 Transfusion of Nonautologous Red Blood Cells into Peripheral Vein, Percutaneous Approach (ICD-10-PCS; 2023-05-22)
PROC: 5A09357 Assistance with Respiratory Ventilation, Less than 24 Consecutive Hours, Continuous Positive Airway Pressure (ICD-10-PCS; 2023-05-22)
DX: G93.41 Metabolic encephalopathy (principal); J96.21 Acute and chronic respiratory failure with hypoxia; N17.9 Acute kidney failure, unspecified; I13.0 Hypertensive heart and chronic kidney disease with heart failure and stage 1 through stage 4 chronic kidney disease, or unspecified chronic kidney disease; I50.32 Chronic diastolic (congestive) heart failure; M62.82 Rhabdomyolysis; I95.1 Orthostatic hypotension; N18.30 Chronic kidney disease, stage 3 unspecified; E11.22 Type 2 diabetes mellitus with diabetic chronic kidney disease; D63.1 Anemia in chronic kidney disease; I65.21 Occlusion and stenosis of right carotid artery; E78.5 Hyperlipidemia, unspecified; I25.10 Atherosclerotic heart disease of native coronary artery without angina pectoris; I48.0 Paroxysmal atrial fibrillation; N40.0 Benign prostatic hyperplasia without lower urinary tract symptoms; J44.9 Chronic obstructive pulmonary disease, unspecified; W19.XXXA Unspecified fall, initial encounter; E11.21 Type 2 diabetes mellitus with diabetic nephropathy; Z11.52 Encounter for screening for COVID-19; Z88.1 Allergy status to other antibiotic agents; Z79.82 Long term (current) use of aspirin; Z79.84 Long term (current) use of oral hypoglycemic drugs; Z89.511 Acquired absence of right leg below knee; Z98.890 Other specified postprocedural states; Z83.6 Family history of other diseases of the respiratory system; Z87.891 Personal history of nicotine dependence
CPT/HCPCS: 31500; 36415; 36416; 36430; 36600; 70450; 70496; 70498; 70551; 71045; 72125; 76770; 80048; 80053; 80069; 80306; 80307; 81001; 82140; 82550; 82570; 82728; 82805; 83036; 83540; 83550; 83605; 83735; 83880; 84146; 84156; 84300; 84484; 84540; 85025; 85046; 85610; 85730; 86850; 86870; 86900; 86901; 86922; 93005; 93010; 93306; 94002; 94003; 94640; 94660; 94760; 94762; 96365; 96375; 96376; C9113; J1815; J1940; J1953; J2920; J3475; J7042; J7050; J7512; J7620; P9016; P9047; Q5105; Q9967